=== PATIENT | female | born 1945 | race Caucasian/White ===

== ENCOUNTER 2022-03-05 06:33 | Inpatient (IN) ==
--- NOTE | 2022-02-15 11:15 | PAT Medication Instructions ---
Medication Instructions Date of Service February 15, 2022 Home Medications Medication Instructions Recorded amlodipine 2.5 mg tablet (Norvasc) 2.5 mg PO DAILY #90 tabs 12/12/20 multivitamin 1 cap PO QAM oxycodone-acetaminophen 10 mg-325 mg tablet 1 tab PO Q8H PRN Pain aspirin 81 mg tablet,delayed release 81 mg PO QPM diphenhydramine HCl 25 mg capsule (Benadryl) 25 mg PO TID PRN Allergy Symptoms folic acid 1 mg tablet 1 mg PO QAM methotrexate 2.5 mg PO WEEKLY pantoprazole 40 mg tablet,delayed release 40 mg PO QAM furosemide 20 mg tablet 40 mg PO QAM amlodipine 2.5 mg tablet (Norvasc) 2.5 mg PO DAILY duloxetine 30 mg capsule,delayed release 30 mg PO QAM metoprolol tartrate 50 mg tablet 50 mg PO BID empagliflozin 10 mg tablet (Jardiance) 10 mg PO QAM gabapentin 100 mg capsule 300 mg PO BID metformin 500 mg tablet 850 mg PO BID rosuvastatin 20 mg tablet 20 mg PO QAM calcium 600 mg-D3 800 unit-mag11 50 gp-qzup-smtppv-sharita-s.borat tablet (Caltrate 600-D Plus Minerals) 1 tab PO QAM losartan 50 mg tablet 50 mg PO QAM icosapent ethyl 1 gram capsule (Vascepa) 0.5 g PO BID spironolactone 25 mg tablet 25 mg PO QAM trazodone 50 mg tablet 50 mg PO HS ASK your prescriber and surgeon icosapent ethyl 1 gram capsule (Vascepa) 0.5 g PO BID aspirin 81 mg tablet,delayed release 81 mg PO QPM methotrexate 2.5 mg PO WEEKLY (Stop 7 days before surgery if okay with prescrib ing provider) DO NOT take the morning of surgery multivitamin 1 cap PO QAM diphenhydramine HCl 25 mg capsule (Benadryl) 25 mg PO TID PRN Allergy Symptoms folic acid 1 mg tablet 1 mg PO QAM furosemide 20 mg tablet 40 mg PO QAM metformin 500 mg tablet 850 mg PO BID calcium 600 mg-D3 800 unit-mag11 50 vf-ukzy-kkfqgk-sharita-s.borat tablet (Caltrate 600-D Plus Minerals) 1 tab PO QAM losartan 50 mg tablet 50 mg PO QAM spironolactone 25 mg tablet 25 mg PO QAM Take morning of surgery With a small sip of water, OTHERWISE NOTHING TO EAT OR DRINK AFTER MIDNIGHT: oxycodone-acetaminophen 10 mg-325 mg tablet 1 tab PO Q8H PRN Pain (if needed) pantoprazole 40 mg tablet,delayed release 40 mg PO QAM amlodipine 2.5 mg tablet (Norvasc) 2.5 mg PO DAILY duloxetine 30 mg capsule,delayed release 30 mg PO QAM metoprolol tartrate 50 mg tablet 50 mg PO BID gabapentin 100 mg capsule 300 mg PO BID rosuvastatin 20 mg tablet 20 mg PO QAM Take evening before surgery oxycodone-acetaminophen 10 mg-325 mg tablet 1 tab PO Q8H PRN Pain (if needed) diphenhydramine HCl 25 mg capsule (Benadryl) 25 mg PO TID PRN Allergy Symptoms (if needed) metoprolol tartrate 50 mg tablet 50 mg PO BID gabapentin 100 mg capsule 300 mg PO BID metformin 500 mg tablet 850 mg PO BID trazodone 50 mg tablet 50 mg PO HS Other Notes STOP 3 DAYS BEFORE SURGERY empagliflozin 10 mg tablet (Jardiance) 10 mg PO QAM If you have any questions please call us at [phone] or [phone] or [phone] or [phone]
--- NOTE | 2022-02-19 15:38 | Anesthesiology Consultation ---
Date of Service February 19, 2022 Assessment & Plan (1) Encounter for pre-operative examination: - COVID screening: Per assessment on 02/19: No known COVID-19 positive contacts or current COVID-19 related symptoms. Travel screen negative. Patient vaccinated. At surgeon discretion if preop Covid testing being done. - Cardiology office visit (01/18/22): "no new cardiac symptoms at this time.. She has an implantable loop recorder and once again this is not revealed atrial tachycardia.. flutter or fibrillation.. Start Vascepa for optimal lipid control given her history of stroke. Her metoprolol has been cut back to 50 mg twice a day due to her relative low blood pressure. I would note that she has a history of hypertension in the past and this low blood pressure is a new finding for her." - Cardiology note (02/08/22): "Low to moderate risk.. hx CVA on ASA.. has loop recorder > no Afib.. Can this be done with ASA on board?" > Per Sarah at surgeon's office, patient was instructed to continue ASA perioperatively. - Abnormal preop CXR: Preop CXR done 02/19/22 shows a 2.3 cm nodular density projects of the left upper lobe (per report, this is indeterminant and a chest CT is recommended to exclude underlying pulmonary lesion). Note written to PCP to see if further chest imaging being done prior to surgery from their perspective. Awaiting response. Chart Review Chart Review: Patient seen in Pre Admission Testing Teaching & Discussion Pre-Anesthesia Teaching/Discussion Notes: Instructed NPO after midnight before surgery,except medications with 15 cc of water. Medication instructions p rovided according to the PAT guidelines. History Surgery Operation Date: 03/05/22 10:45 Proposed Procedures p L3-L5 Decompression and Fusion Spinal Cord Monitoring - Donte Escamilla DO Height/Weight Height: 4 ft 11 in Weight: 58.7 kg Allergies Allergy/AdvReac Type Severity Reaction Status Date / Time No Known Allergies Allergy Verified 02/14/22 12:50 Medications Home Medications Medication Instructions Recorded Confirmed Last Taken multivitamin 1 cap PO QAM 07/05/19 02/14/22 Unknown oxycodone-acetaminophen 10 mg-325 1 tab PO Q8H PRN Pain 07/05/19 02/14/22 Unknown mg tablet aspirin 81 mg tablet,delayed 81 mg PO QPM 06/27/20 02/14/22 Unknown release diphenhydramine HCl 25 mg capsule 25 mg PO TID PRN Allergy Symptoms 06/27/20 02/14/22 Unknown (Benadryl) folic acid 1 mg tablet 1 mg PO QAM 06/27/20 02/14/22 Unknown methotrexate 2.5 mg PO WEEKLY 06/27/20 02/14/22 Unknown pantoprazole 40 mg tablet,delayed 40 mg PO QAM 06/27/20 02/14/22 Unknown release furosemide 20 mg tablet 40 mg PO QAM 06/29/20 02/14/22 Unknown amlodipine 2.5 mg tablet (Norvasc) 2.5 mg PO DAILY #90 tabs 12/12/20 02/14/22 Unknown duloxetine 30 mg capsule,delayed 30 mg PO QAM 12/12/20 02/14/22 Unknown release metoprolol tartrate 50 mg tablet 50 mg PO BID 12/12/20 02/14/22 Unknown empagliflozin 10 mg tablet 10 mg PO QAM 07/31/21 02/14/22 Unknown (Jardiance) gabapentin 100 mg capsule 300 mg PO BID 07/31/21 02/14/22 Unknown metformin 500 mg tablet 850 mg PO BID 07/31/21 02/14/22 Unknown rosuvastatin 20 mg tablet 20 mg PO QAM 07/31/21 02/14/22 Unknown calcium 600 mg-D3 800 unit-mag11 1 tab PO QAM 10/30/21 02/14/22 Unknown 50 ar-qjsr-vvapcp-sharita-s.borat tablet (Caltrate 600-D Plus Minerals) losartan 50 mg tablet 50 mg PO QAM 10/30/21 02/14/22 Unknown icosapent ethyl 1 gram capsule 0.5 g PO BID 02/14/22 02/14/22 Unknown (Vascepa) spironolactone 25 mg tablet 25 mg PO QAM 02/14/22 02/14/22 Unknown trazodone 50 mg tablet 50 mg PO HS 02/14/22 02/14/22 Unknown Eye Drop Tears BID 02/19/22 Unknown Nasal [place] (sodium chloride) HS PRN Allergy Symptoms 02/19/22 Unknown Past Medical History Medical History Anxiety and depression Breast cancer Dx 15 yrs ago, s/p left mastectomy (no chemo/XRT) Diabetes mellitus, type II GERD (gastroesophageal reflux disease) History of CVA (cerebrovascular accident) 2020 felt r/t hypertensive episode (Focal acute lacunar infarct in right posterior corpus collosum) > residual memory issues and mild aphasia. Follows / [facility] neuro [facility]. History of glomerulonephritis Hx of congestive heart failure Hx of myocardial infarction [address] Encinas/[facility] cardio [facility] last visit- 01/2022 Hyperlipidemia Hypertension Osteoarthritis Renal function impairment Follows with Dr. Diaz Baseline creatinine 1.4 per chart review Rheumatoid arthritis Follow with Dr Keith/[facility] Sleep apnea Not currently using device Spinal stenosis Stress incontinence Exercise / Class Metabolic Activity III < 4 Walking/Shop/Light housework (one FS (no CP, + SOB)) Past Family History Family History Other Coronary heart disease Denies family history of Kidney disease Past Surgical History Surgical History H/O carpal tunnel repair H/O mastectomy left History of esophagogastroduodenoscopy (EGD) Hx of cardiac catheterization 25 yrs ago > no stents Hx of cholecystectomy Hx of colonoscopy S/P rotator cuff repair S/P RENUKA-BSO Status post biopsy of kidney Past Anesthesia History No Hx of Anesthesia Complications and No Family Hx of Anesthesia Complications History of PONV No Hx of PONV and No Hx of Motion Sickness Social History Smoking Status: Never smoker Do You Dip or Chew Tobacco: No Hx Alcohol Use: Yes Alcohol type: wine alcohol intake frequency: holidays/special occasions only Hx Substance Use: No substance use type: does not use Review of Systems Patient denies chest pain, shortness of breath, dyspnea on exertion, fever, chills, cough, wheezing, palpitations. Physical Exam Vital Signs VITALS BP 138/63 P 66 TEMP 99.0 SP02 95%RA RESP 16 PHYSICAL Full cervical extension range of motion. Full TMJ range of motion. TMD 4 finger breaths Mallampati Score 1 Dentition: intact, + crowns Lungs: clear throughout to auscultation Cardiac: regular rate and rhythm, no murmurs noted Spine: normal Carotid arteries: negative bruit Extremities: no edema Lab Results Anesthesia Preop Results Results Anesthesia Widget: WBC 5.01 K/ul (4.8-10.8) 02/19/22 Hgb 12.8 g/dl (12.0-16.0) 02/19/22 Hct 37.7 % (34.1-44.9) 02/19/22 Plt 203 K/uL (130-400) 02/19/22 Na 137 mmol/L (136-145) 02/19/22 K 4.7 mmol/L (3.5-5.1) 02/19/22 Cl 99 mmol/L (98-107) 02/19/22 CO2 32 mmol/L (21-32) 02/19/22 BUN 43 mg/dl (6-23) H 02/19/22 Creat 1.20 mg/dl (0.6-1.2) 02/19/22 Glucose Level 133 mg/dl (70-99(Fasting)) H 02/19/22 PT 10.6 Seconds (9.0-12.0) 02/19/22 PTT 24.7 Seconds (21.0-31.0) 02/19/22 INR 1.0 (0.9-1.1) 02/19/22 HA1c 7.5 % (4.5-5.6) H 02/19/22 Urine Color Yellow 02/19/22 Urine Appearance Clear (Clear) 02/19/22 Urine pH 5.5 (4.5-7.5) 02/19/22 Urine Specific [place] 1.013 (1.000-1.030) 02/19/22 Urine Protein Negative (Negative) 02/19/22 Urine Glucose (UA) 3+ (Negative) H 02/19/22 Urine Ketones Negative (Negative) 02/19/22 Urine Blood Trace (Negative) H 02/19/22 Urine Nitrite Negative (Negative) 02/19/22 Urine Bilirubin Negative (Negative) 02/19/22 Urine Urobilinogen Negative (Negative) 02/19/22 Urine Leukocyte Esterase Negative (Negative) 02/19/22 Urine WBC (Auto) 1-5 /hpf (0-5) 02/19/22 Urine RBC (Auto) 0-4 /hpf (0-4) 02/19/22 Urine Hyaline Casts (Auto) 0 /lpf (0-5) 02/19/22 Urine Epithelial Cells (Auto) 0-5 /lpf (0-5) 02/19/22 Urine Bacteria (Auto) Negative (Negative) 02/19/22 Blood Type A Positive 02/19/22 Antibody Screen NEGATIVE 02/19/22 Testing Electrocardiogram Date: 01/20/22 Sinus rhythm at 65 bpm. ECG without significant abnormalities. Similar to 2020 per confirming provider. Chest X-Ray Date: 02/19/22 FINDINGS: PA and lateral chest radiographs are obtained. No prior studies are available for comparison at the time of dictation. An electronic device is located in the chest wall. The heart is mildly enlarged noting atherosclerotic calcification of the thoracic aorta. The pulmonary vasculature is noncongested. There is mild bibasilar scarring/atelectasis. No airspace consolidation or pleural effusion is identified. A 2.3 cm nodular density projects over the left upper lobe. There is no pneumothorax. The skeletal structures are osteopenic. The bony thorax appears intact. Surgical clips are noted in the left chest wall. Cholecystectomy clips are seen in the right upper quadrant. IMPRESSION: Cardiomegaly with no acute cardiopulmonary abnormality. A 2.3 cm nodular density projects of the left upper lobe. This is indeterminant and a chest CT is recommended to exclude underlying pulmonary lesion. Echocardiogram Date: 12/31/21 EF 65%. Grade 1 diastolic dysfunction. Mild aortic sclerosis. Mild MR. Mild mitral stenosis. Moderate mitral annular calcification. Mild CT. Stress Test Date: 02/21/21 Type: nuclear Normal nuclear stress test. No evidence of ischemia or infarction. Normal LVEF and wall motion. COVID-19 Risk Screen Screening Information COVID-19 Screen Date: 02/19/22 Exposure 21 Days Family/Household +COVID Last 21 Days: No Exposure 10 Days Any COVID Exposure Last 10 Days: No Symptoms Last 10 Days Experienced COVID Sx Last 10 Days: No + COVID 0-90 Days COVID + in Last 0-90 Days: No
[~2022-03-05 06:33] MED LIST: ACETAMINOPHEN 500 MG TAB PO SCH; CeleBREX 200 MG CAP PO SCH; GABAPENTIN 300 MG CAP PO SCH; LR 15ML/HR IV SCH; ceFAZolin 1000MG 1,000 MG/7.5 ML SYR IV SCH
[2022-03-05] MEDS ORDERED: ONDANSETRON INJ 2 MG/ML 2 ML VIAL ONE (06:50)
[2022-03-05] MEDS ORDERED: GLYCOPYRROLATE 0.2 MG/ML VIAL ONE (06:50)
[2022-03-05] MEDS ORDERED: NEOSTIGMINE METHYLSULFATE 1 MG/ML 10ML VIAL ONE (06:50)
[2022-03-05] MEDS ORDERED: DEXAMETHASONE SOD INJ 4 MG/ML VIAL ONE (06:50)
[2022-03-05] MEDS ORDERED: fentaNYL citrate 100 MCG/2 ML VIAL ONE (06:50)
[2022-03-05] MEDS ORDERED: PROPOFOL IV EMULSION 10 MG/ML 20 ML VIAL IV ONE (06:50)
[2022-03-05] MEDS ORDERED: ROCURONIUM BROMIDE 10 MG/ML 5 ML VIAL IV ONE (06:51)
[2022-03-05] MEDS ORDERED: LIDOCAINE 2% MPF LOCAL 5 ML VIAL INFIL ONE (06:51)
[2022-03-05] MEDS ORDERED: BUPIVACAINE/EPINEPHRINE 0.25% 1:200,000 30 ML VIAL ONE (07:08)
[2022-03-05] MEDS ORDERED: ceFAZolin 330 MG/ML 1 GM VIAL ONE (07:08)
--- NOTE | 2022-03-05 07:32 | History & Physical Bridge Note ---
Date of Service March 05, 2022 History & Physical Bridge Note I have examined the patient, reviewed the History & Physical and in the interval since the performance of the History & Physical I have noted the following changes of clinical significance: no changes noted
--- NOTE | 2022-03-05 07:33 | History & Physical Report ---
Date of Service March 05, 2022 Assessment & Plan (1) Neurogenic claudication due to lumbar spinal stenosis: Plan: L3-L5 decompression and fusion History of Present Illness Chief Complaint: Back and bilateral leg pain Primary Care Provider: Martha Duarte DO This is a 68-year-old female who presents with chronic persistent back and bilateral leg pain. After failing extensive course of nonoperative care is here for surgical intervention. Allergies Allergy/AdvReac Type Severity Reaction Status Date / Time No Known Allergies Allergy Verified 03/05/22 06:51 Home Medications Medication Instructions Recorded Confirmed Type multivitamin 1 cap PO QAM 07/05/19 03/05/22 History oxycodone-acetaminophen 10 mg-325 1 tab PO Q8H PRN Pain 07/05/19 03/05/22 History mg tablet aspirin 81 mg tablet,delayed 81 mg PO QPM 06/27/20 03/05/22 History release diphenhydramine HCl 25 mg capsule 25 mg PO TID PRN Allergy Symptoms 06/27/20 03/05/22 History (Benadryl) folic acid 1 mg tablet 1 mg PO QAM 06/27/20 03/05/22 History methotrexate 2.5 mg PO WEEKLY 06/27/20 03/05/22 History pantoprazole 40 mg tablet,delayed 40 mg PO QAM 06/27/20 03/05/22 History release furosemide 20 mg tablet 40 mg PO QAM 06/29/20 03/05/22 History amlodipine 2.5 mg tablet (Norvasc) 2.5 mg PO DAILY #90 tabs 12/12/20 03/05/22 Rx duloxetine 30 mg capsule,delayed 30 mg PO QAM 12/12/20 03/05/22 History release metoprolol tartrate 50 mg tablet 50 mg PO BID 12/12/20 03/05/22 History empagliflozin 10 mg tablet 10 mg PO QAM 07/31/21 03/05/22 History (Jardiance) gabapentin 100 mg capsule 300 mg PO BID 07/31/21 03/05/22 History metformin 500 mg tablet 850 mg PO BID 07/31/21 03/05/22 History rosuvastatin 20 mg tablet 20 mg PO QAM 07/31/21 03/05/22 History calcium 600 mg-D3 800 unit-mag11 1 tab PO QAM 10/30/21 03/05/22 History 50 rv-ojwn-xgztsy-sharita-s.borat tablet (Caltrate 600-D Plus Minerals) losartan 50 mg tablet 50 mg PO QAM 10/30/21 03/05/22 History icosapent ethyl 1 gram capsule 0.5 g PO BID 02/14/22 03/05/22 History (Vascepa) spironolactone 25 mg tablet 25 mg PO QAM 02/14/22 03/05/22 History trazodone 50 mg tablet 50 mg PO HS 02/14/22 03/05/22 History Eye Drop Tears BID 02/19/22 History Nasal [place] (sodium chloride) HS PRN Allergy Symptoms 02/19/22 History Past Med/Surg History Medical History Anxiety and depression Breast cancer Dx 15 yrs ago, s/p left mastectomy (no chemo/XRT) Diabetes mellitus, type II GERD (gastroesophageal reflux disease) History of CVA (cerebrovascular accident) 2020 felt r/t hypertensive episode (Focal acute lacunar infarct in right posterior corpus collosum) > residual memory issues and mild aphasia. Follows w/ [facility] neuro [facility]. History of glomerulonephritis Hx of congestive heart failure Hx of myocardial infarction [address] Encinas/[facility] cardio [facility] last visit- 01/2022 Hyperlipidemia Hypertension Osteoarthritis Renal function impairment Follows with Dr. Diaz Baseline creatinine 1.4 per chart review Rheumatoid arthritis Follow with Dr Keith/[facility] Sleep apnea Not currently using device Spinal stenosis Stress incontinence Surgical History H/O carpal tunnel repair H/O mastectomy left History of esophagogastroduodenoscopy (EGD) Hx of cardiac catheterization 25 yrs ago > no stents Hx of cholecystectomy Hx of colonoscopy S/P rotator cuff repair S/P RENUKA-BSO Status post biopsy of kidney Family History Other Coronary heart disease Denies family history of Kidney disease Social History Smoking Status: Never smoker Second Hand Exposure: No; Do You Dip or Chew Tobacco: No; Tobacco Cessation Education Requested by Patient: No Hx Alcohol Use: Yes Alcohol type: wine Hx Substance Use: No Preferred Language: [place] Communication Ability: Effective [place] Required: No Beliefs That Will Affect Care: None marital status: Current Living Situation: Spouse Other Information That Helps Us Care for You: No Feels Safe at Home: Yes Safety Concerns: Feels Safe At This Time Assistive Devices: Cane and Glasses Physical Exam Physical Exam: Patient is alert and oriented Heart regular rhythm Lungs clear Results & Data Results & Data ([facility]) Vital Signs (Past 12 Hours) Vital Signs Temp Pulse Resp BP Pulse Ox O2 Del Method 03/05/22 07:01 Room Air 03/05/22 07:01 37.3 C 66 20 151/70 H 98 Room Air
[2022-03-05] MEDS ORDERED: HYDROmorphone INJ 2 MG/ML SYR/VIAL IV PRN (08:16)
[2022-03-05] MEDS ORDERED: ONDANSETRON INJ 2 MG/ML 2 ML VIAL IV PRN ×2 (08:16→12:08)
[2022-03-05] MEDS ORDERED: ePHEDrine sulfate 50 MG/ML AMP IV PRN (08:16)
[2022-03-05] MEDS ORDERED: ATROPINE SULFATE 0.1 MG/ML 10ML SYR IV PRN (08:16)
[2022-03-05] MEDS ORDERED: PROMETHAZINE HCL 12.5 MG in SODIUM CHLORIDE 0.9% 50 ML IV PRN ×2 (08:16→12:08)
[2022-03-05] MEDS ORDERED: HYDROmorphone INJ 2 MG/ML SYR/VIAL ONE (08:22)
[2022-03-05] MEDS ORDERED: FLOSEAL HEMOSTATIC MATRIX 10ML TOP ONE (08:27)
[2022-03-05] MEDS ORDERED: ePHEDrine sulfate 50 MG/ML SYR ONE (08:42)
[2022-03-05] MEDS ORDERED: PHENYLEPHRINE 100MCG/ML 5ML SYR ONE (08:42)
[2022-03-05] MEDS ORDERED: ALBUMIN HUMAN 5% 12.5 GM/250 ML VIAL IV ONE (09:28)
[2022-03-05] MEDS ORDERED: PHENYLEPHRINE HCL 10 MG/ML VIAL ONE (10:26)
--- NOTE | 2022-03-05 10:26 | Operative Report ---
Post Operative Report Pre & Post Diagnosis Operation Date: 03/05/22 07:45 Pre-Op Diagnosis: Neurogenic Claudication due to Lumbar Spinal Stenosis Post-Op Diagnosis: Neurogenic Claudication due to Lumbar Spinal Stenosis I identified the patient and participated in the time-out.: Yes Procedure Operation Date: 03/05/22 07:45 Actual Procedures #1 lumbar decompression bilateral medial facetectomies and foraminotomies L2-L3 L3-L4 L4-5. 2 posterior spinal fusion L2-L3 L3-L4 L4-5. #3 placement of posterior segmental instrumentation L2-L5. #4 placement locally harvested morselized autograft in the posterior gutters. #5 placement of I factor model V toss in the posterior gutters L2-L5. Surgeon Donte Escamilla, Pediatric Registered Nurse Angela Zhao Estimated Blood Loss 650 Findings See Below Specimens None Indications This is a 68-year-old female who presents above-mentioned diagnosis after failing course of nonoperative care is here for surgical invention. Description of Procedure Patient was met with identified informed consent obtained. Patient was then taken to the operative suite underwent an patient placed in a prone position the [place] table top Alan frame. All bony prominences well-padded eyes inspected to ensure no external pressure placed upon the. This point the lumbar spine was prepped and draped in a sterile fashion. Sharp dissection with the assistance of Bovie cautery performed down to and exposing the lamina and transverse processes of L3 L4-5 bilaterally. From caudal to cephalad fashion complete laminectomy of L4 L3 and extended the decompression L2 including medial facetectomies and foraminotomies addressing severe spinal stenosis. Due to her bony architecture was unable to successfully perform an interbody at L3-L4 and she had severe stenosis at L2-L3 upon exploration subsequently extended the fusion to L2 for additional stability. Pedicle screws were placed in L2-L3-L4 L5 bilaterally with assistance of fluoroscopy and proper sized matt placed. Transverse processes of L2-L3-L4 L5 were then burred to subcortically bone. I factor model V toss and locally harvested morselized autograft was placed in the posterior gutters. 15 round DELPHINE inserted. The incision was then closed with 1 Vicryl the fascia 2-0 Vicryl subcutaneously and 4 Monocryl for final skin closure. Steri-Strip sterile dressings placed. Patient waken taken to PACU in stable condition. I did place a small amount of DuraGen over the L4 region as the dura was quite thin from marked bony overgrowth. This was prophylactic. Please note Angela Zhao was present at the entire procedure involved the patient positioning complex portion of the surgery and fascial closure. Lastly spinal cord monitoring was utilized at the procedure no changes noted. I attest to the content of the Intraoperative Record and any orders documented therein. Any exceptions are noted below.
--- NOTE | 2022-03-05 10:46 | Fluoroscopy Report ---
FL lumbar spine 2-3V HISTORY: 76 years-old Female L3-L5 DECOMPRESSION AND FUSION COMPARISON: None TECHNIQUE: 3 spot fluoroscopic images of the lumbar spine were obtained utilizing 48.5 seconds fluoro scopy time FINDINGS: Posterior interbody matt and screw fusion hardware is noted at what is labeled the L2-L5 levels. The h ardware appears intact. Severe multilevel vertebral disc space narrowing and spondylitic spurring. No unexpected opaque foreign bodies identified. The images were submitted following completion of the s urgery. IMPRESSION: Fluoroscopic assistance as above. ACT 112: Negative or not required by law. The above report was generated using voice recognition software. It may contain grammatical, syntax o r spelling errors. Electronically signed by: Alex Mohamud M.D. 03/05/2022 10:44 AM
[2022-03-05] MEDS: fentaNYL citrate 100 MCG/2 ML VIAL IV PRN ×2 (10:57→11:02)
--- NOTE | 2022-03-05 11:42 | Anesthesiology Progress Note ---
Date of Service March 05, 2022 Anesthesia Post Procedure Vital Signs Vital Signs: Temp Pulse Pulse Resp BP BP Pulse Ox 03/05/22 11:35 36.8 C 70 13 95/57 L 98 03/05/22 11:25 72 12 92/57 L 97 03/05/22 11:15 60 15 96/49 L 95 03/05/22 11:05 63 18 92/42 L 95 03/05/22 10:55 60 11 L 113/46 L 96 03/05/22 10:46 36.1 C L 72 14 126/62 98 03/05/22 07:01 03/05/22 07:01 37.3 C 66 20 151/70 H 98 O2 Del Method O2 Flow Rate 03/05/22 11:35 Nasal Cannula 2 03/05/22 11:25 Nasal Cannula 2 03/05/22 11:15 Nasal Cannula 2 03/05/22 11:05 Oxymask 2 03/05/22 10:55 Oxymask 4 03/05/22 10:46 Oxymask 4 03/05/22 07:01 Room Air 03/05/22 07:01 Room Air Pain Intensity Bilateral Back: Pain Intensity: 2 Back: Pain Intensity: 4 Transfer of Care Handoff Completed per policy Notes Mental Status: alert / awake / arousable and participated in evaluation Patient Amnestic to Procedure: Yes Nausea / Vomiting: adequately controlled Pain: adequately controlled Airway Patency, RR, SpO2: stable & adequate BP & HR: stable & adequate Hydration State: stable & adequate Anesthetic Complications: no major complications apparent
[2022-03-05] MEDS ORDERED: bisacodyL 10 MG SUPP PR PRN (12:08)
[2022-03-05] MEDS ORDERED: SOD PHOSPHATE/SOD BIPHOSPHATE ENEMA 132 ML BTL PR PRN (12:08)
[2022-03-05] MEDS ORDERED: PHARMACY GLYCEMIC MGMT CONSULT PRN (12:08)
[2022-03-05] MEDS ORDERED: NALOXONE HCL 0.4 MG/1 ML VIAL/CARP IV PRN (12:08)
[2022-03-05] MEDS ORDERED: ONDANSETRON 4 MG OD TAB PO PRN (12:08)
[2022-03-05] MEDS ORDERED: LORazepam 0.5 MG TAB PO PRN (12:08)
[2022-03-05] MEDS ORDERED: HYDROmorphone INJ 0.5 MG/0.5 ML SYR IV PRN (12:08)
[2022-03-05] MEDS ORDERED: diphenhydrAMINE Capsule 25 MG CAP PO PRN ×2 (12:08)
[2022-03-05] MEDS ORDERED: LORazepam 0.5 MG in SYRINGE 0 ML IV PRN (12:08)
[2022-03-05] MEDS ORDERED: ACETAMINOPHEN 1,000 MG/100 ML VIAL IV PRN (12:08)
[2022-03-05] MEDS ORDERED: METOCLOPRAMIDE HCL INJ 5 MG/ML 2 ML VIAL IV PRN (12:08)
[2022-03-05] MEDS ORDERED: MAGNESIUM HYDROXIDE SUSP 30 ML UDC PO PRN (12:08)
[2022-03-05] MEDS ORDERED: HYDROmorphone INJ 1 MG/ML SYRINGE IV PRN (12:08)
[2022-03-05] MEDS ORDERED: hydrOXYzine HCl 25 MG TAB PO PRN (12:08)
[2022-03-05] MEDS ORDERED: ALUMINUM/MAGNESIUM SUSP 30 ML UDC PO PRN (12:08)
[2022-03-05] MEDS ORDERED: FAMOTIDINE 20 MG TAB PO PRN (12:08)
[2022-03-05] MEDS ORDERED: CARBOHYDRATES FOR HYPOGLYCEMIA PO PRN (12:45)
[2022-03-05] MEDS ORDERED: GLUCOSE 40% GEL 15 GM TUBE PO PRN (12:45)
[2022-03-05] MEDS ORDERED: GLUCOSE 10 TAB/TUBE PO PRN (12:45)
[2022-03-05] MEDS ORDERED: GLUCAGON FOR INJ 1 MG VIAL IM PRN (12:45)
[2022-03-05] MEDS ORDERED: LANTUS PER UNIT CHARGE SQ ONE (12:45)
[2022-03-05] MEDS ORDERED: DEXTROSE 50% 50 ML SYRINGE IV PRN (12:45)
[2022-03-05] MEDS: traMADol HCL 50 MG TABLET PO PRN ×3 (12:50→23:42)
[2022-03-05] MEDS: INSULIN ASPART PER UNIT SC SCH ×3 (13:30→21:15)
[2022-03-05] MEDS: SODIUM CHLORIDE 0.9% 1000ML 1,000 ML IV SCH ×2 (13:30→23:42)
--- NOTE | 2022-03-05 14:22 | Pharmacy Report ---
Pharmacy Glycemic Short Note 2 - Date of Service March 05, 2022 - Glycemic Short BSG Results (Last 24 hours): 03/05/22 03/05/22 03/05/22 07:02 10:52 12:20 POC Glucose 149 H 217 H 214 H OUTPATIENT ANTIDIABETIC REGIMEN: * Jardiance 10 mg PO daily * Metformin 850 mg PO BIDM HbA1c: 7.5% (02/19/22) ASSESSMENT: * is a 76 year old female POD #0 s/p lumbar decompression fusion * Received 4 mg IV dexamethasone in OR and ordered 6 mg IV daily ongoing * Reasonable HbA1c based on age with oral agents only * BSGs elevated so far today, preop BSG of 149 mg/dL, postop BSG of 214 mg/dL * Will give ~0.3 unit/kg basal to cover steroids and weight-based stress of 3 Novolog parameters with 0000 check PLAN FOR INPATIENT GLYCEMIC CONTROL: * Hold outpatient oral diabetes medications * Basal insulin * Lantus 18 units SC x 1 (~0.3 unit/kg) * Reassess in AM with IV dexamethasone * Bolus insulin * NovoLog per scale ACHS or Q6hrs while NPO * Goal Range: Low 110 mg/dL - High 140 mg/dL * Correction Factor: 30 mg/dL/unit * Nutritional / Prandial insulin per carb ratio of 1 unit per 8 grams CHO consumed
--- NOTE | 2022-03-05 15:00 | Hospitalist Consultation ---
Date of Consultation March 05, 2022 Assessment & Plan (1) Neurogenic claudication due to lumbar spinal stenosis: - POD #0, EBL 650 cc, without complications. - Pain/ABX/IVF/diet/drain management/transfusion needs/activity per primary team - Rescue Narcan ordered for over sedation PRN - VTE prophylaxis per primary service- SCDs in place - CBC and BMP in AM. - Baseline renal function: 1.2 on 02/19, GFR 43. - Baseline Hgb: 12.8 on 02/19 (2) CAD (coronary artery disease): - Hold losartan untl POD# unless SBP > 150; Continue metoprolol, statin, Vascepa. - Hold Lasix, spironolactone until POD #2 unless fluids overload. (3) CKD (chronic kidney disease): - History of glomerulonephritis with IgA nephropathy, baseline creatinine 1.4. - Monitor on daily BMP. - Hold losartan, continue metoprolol for BP control. Holding SGLT2 during admission. (4) History of CVA (cerebrovascular accident): - History of several strokes, thought to be hypertension related, also may be due to A. fib, however patient not diagnosed with such. - Continue on aspirin daily as long as okay with primary team to resume. (5) Hx of congestive heart failure: - Echo 12/24: Normal left ventricular size EF 65% grade 1 diastolic dysfunction normal right ventricular size and function. Mild mitral regurg mild stenosis, trace tricuspid regurg. - Hold spironolactone 25 mg daily, Lasix 40 mg daily until POD #2 if BP low- normal. (6) GERD (gastroesophageal reflux disease): - Continue PPI. (7) Anxiety and depression: - Continue Cymbalta, gabapentin. - Trazodone at night for sleep. (8) Rheumatoid arthritis: - On methotrexate with folate supplementation. (9) Diabetes mellitus, type II: - On metformin and Jardiance at home, hold durin admission - Pharmacy consulted for glycemic control. Recommendations are for Lantus 18 units in the a.m., reassess daily given IV dexamethasone use. - SSI: CF 30, CR 8 Plan - CT follow up in 12 months for lung nodules. Supervising Physician Co-Signing Physician Notes Patient seen and examined, chart reviewed, case discussed with Joan Gonsalez PA-C and I agree with the assessment and plan as above except as otherwise noted Labs and images reviewed Lois is a 76-year-old female with past medical history of CVA, CHF with EF 65%, GERD, anxiety/depression, RA on methotrexate, DM2 not on insulin, CAD, neurogenic claudication who presented for scheduled lumbar decompression and fusion and who is s/p surgical intervention 03/05/2022 without surgical complications. Postop is doing well, no fever/chills/sweats/lightheadedness/dizziness. Some mid low back pain. Thinks she has some improved sensation in her R lateral thigh. Sensation intact in feet bilaterally. Some baseline neuropathy. CTAB, RRR. No longer on amlodipine, medications updated. Patient is with adequate MAP but relative hypotension postoperatively. Continue to hold spironolactone, losartan, Lasix, amlodipine until 03/06. Hold metoprolol for systolic less than 100 or heart rate less than 60. Resume aspirin tomorrow, DVT prophylaxis per primary team. If blood pressure normalizes and creatinine normal in the morning may resume home regimen. If creatinine elevated can continue to hold losartan/spironolactone and resume amlodipine first. Otherwise agree with management of chronic issues above. Lung Nodules: 3x <6mm. No need for followup with low risk, given hx of cancer and high concern for environmental exposure can repeat CT at 12 months. History of Present Illness Reason for Consultation: medical management Requesting Physician: Donte Escamilla DO Attending Physician: Donte Escamilla DO History of Present Illness Lois Mayo is a 76-year-old female with past medical history significant for hypertension, hyperlipidemia, CHF, CAD, CKD, prior CVA, DM2, urinary incontinence, anxiety, depression, rheumatoid arthritis, GERD, who was admitted today, 03/05 for L3-L5 decompression fusion surgery with Dr. Escamilla. He has had chronic, persistent back and leg pain extensive, conservative outpatient management. Hospitalist group was consulted for post-operative medication management. Today, she is POD#0 and feels well. Denies fever/chills, weakness, chest pain, palpitations, shortness of breath, cough, orthopnea, abdominal pain, nausea, vomiting. She has some bilateral numbness in her upper thighs which is unchanged prior to surgery. No weakness, tingling. Allergies Allergy/AdvReac Type Severity Reaction Status Date / Time No Known Allergies Allergy Verified 03/05/22 06:51 Home Medications Medication Instructions Recorded Confirmed Type multivitamin 1 cap PO QAM 07/05/19 03/05/22 History oxycodone-acetaminophen 10 mg-325 1 tab PO Q8H PRN Pain 07/05/19 03/05/22 History mg tablet aspirin 81 mg tablet,delayed 81 mg PO QPM 06/27/20 03/05/22 History release diphenhydramine HCl 25 mg capsule 25 mg PO TID PRN Allergy Symptoms 06/27/20 03/05/22 History (Benadryl) folic acid 1 mg tablet 1 mg PO QAM 06/27/20 03/05/22 History methotrexate 2.5 mg PO WEEKLY 06/27/20 03/05/22 History pantoprazole 40 mg tablet,delayed 40 mg PO QAM 06/27/20 03/05/22 History release furosemide 20 mg tablet 40 mg PO QAM 06/29/20 03/05/22 History duloxetine 30 mg capsule,delayed 30 mg PO QAM 12/12/20 03/05/22 History release metoprolol tartrate 50 mg tablet 50 mg PO BID 12/12/20 03/05/22 History empagliflozin 10 mg tablet 10 mg PO QAM 07/31/21 03/05/22 History (Jardiance) gabapentin 100 mg capsule 300 mg PO BID 07/31/21 03/05/22 History metformin 500 mg tablet 850 mg PO BID 07/31/21 03/05/22 History rosuvastatin 20 mg tablet 20 mg PO QAM 07/31/21 03/05/22 History calcium 600 mg-D3 800 unit-mag11 1 tab PO QAM 10/30/21 03/05/22 History 50 uu-uapx-zjuzyv-sharita-s.borat tablet (Caltrate 600-D Plus Minerals) losartan 50 mg tablet 50 mg PO QAM 10/30/21 03/05/22 History icosapent ethyl 1 gram capsule 0.5 g PO BID 02/14/22 03/05/22 History (Vascepa) spironolactone 25 mg tablet 25 mg PO QAM 02/14/22 03/05/22 History trazodone 50 mg tablet 50 mg PO HS 02/14/22 03/05/22 History Eye Drop Tears BID 02/19/22 History Nasal [place] (sodium chloride) HS PRN Allergy Symptoms 02/19/22 History Patient History Medical History (Updated 03/05/22 @ 15:21 by Joan Gonsalez PA-C) Anxiety and depression Breast cancer Dx 15 yrs ago, s/p left mastectomy (no chemo/XRT) Diabetes mellitus, type II GERD (gastroesophageal reflux disease) History of CVA (cerebrovascular accident) 2020 felt r/t hypertensive episode (Focal acute lacunar infarct in right posterior corpus collosum) > residual memory issues and mild aphasia. Follows w/ [facility] neuro [facility]. History of glomerulonephritis Hx of congestive heart failure Hx of myocardial infarction [address] Encinas/[facility] cardio [facility] last visit- 01/2022 Hyperlipidemia Hypertension Osteoarthritis Renal function impairment Follows with Dr. Diaz Baseline creatinine 1.4 per chart review Rheumatoid arthritis Follow with Dr Keith/[facility] Sleep apnea Not currently using device Spinal stenosis Stress incontinence Surgical History H/O carpal tunnel repair H/O mastectomy left History of esophagogastroduodenoscopy (EGD) Hx of cardiac catheterization 25 yrs ago > no stents Hx of cholecystectomy Hx of colonoscopy S/P rotator cuff repair S/P RENUKA-BSO Status post biopsy of kidney Family History Other Coronary heart disease Denies family history of Kidney disease Social History Smoking Status: Never smoker Second Hand Exposure: No; Do You Dip or Chew Tobacco: No; Tobacco Cessation Education Requested by Patient: No Hx Alcohol Use: Yes Alcohol type: wine Hx Substance Use: No Preferred Language: Bengali Communication Ability: Effective Envelope Folding Machine Adjuster Required: No Beliefs That Will Affect Care: None marital status: Current Living Situation: Spouse Other Information That Helps Us Care for You: No Feels Safe at Home: Yes Safety Concerns: Feels Safe At This Time Assistive Devices: Cane and Glasses Review of Systems Review of Systems: All systems reviewed & are unremarkable except as noted in HPI & below Physical Exam Physical Exam: General: awake, alert, no apparent distress Head: Normocephalic, atraumatic ENT: PERRL, EOMI, no pharyngeal exudate, mucous membranes moist Chest: Clear to auscultation, on room air, no adventitious breath sounds Cardiac: Regular rate and rhythm, no murmur, no JVD, normal peripheral pulses, good capillary refill Abdominal: NABS x 4 quadrants, soft, nontender to palpation, no rebound, guarding or tenderness Extremities: b/l paraesthesias in b/l upper legs, unchanged from prior to surgery; no new sensory or motor deficits; otherwise normal inspection, no peripheral edema or erythema, calfs nontender to palpation Psych: Normal mood and affect Neuro: AAO x 3, strength intact bilaterally and rated 5/5, no motor deficits, speech is clear, no peripheral sensory deficits Skin: no rash or erythema Results & Data Results & Data ([facility]) Vital Signs (Past 12 Hours) Vital Signs Temp Pulse Pulse Resp BP BP Pulse Ox 03/05/22 14:38 36.7 C 74 16 95/42 L 95 03/05/22 13:13 36.5 C 62 18 102/51 L 94 03/05/22 12:40 36.8 C 63 18 107/42 L 97 03/05/22 12:20 95/37 L 03/05/22 12:05 36.8 C 71 18 88/46 L 95 03/05/22 11:55 76 22 96/64 L 98 03/05/22 11:45 36.8 C 74 20 86/44 L 97 03/05/22 11:35 70 13 89/41 L 98 03/05/22 11:25 72 12 92/57 L 97 03/05/22 11:15 60 15 96/49 L 95 03/05/22 11:05 63 18 92/42 L 95 03/05/22 10:55 60 11 L 113/46 L 96 03/05/22 10:46 36.1 C L 72 14 126/62 98 03/05/22 07:01 03/05/22 07:01 37.3 C 66 20 151/70 H 98 O2 Del Method O2 Flow Rate 03/05/22 14:38 Room Air 03/05/22 13:13 Room Air 03/05/22 12:40 Nasal Cannula 2 03/05/22 12:20 03/05/22 12:05 Nasal Cannula 2 03/05/22 11:55 Nasal Cannula 2 03/05/22 11:45 Nasal Cannula 2 03/05/22 11:35 Nasal Cannula 2 03/05/22 11:25 Nasal Cannula 2 03/05/22 11:15 Nasal Cannula 2 03/05/22 11:05 Oxymask 2 03/05/22 10:55 Oxymask 4 03/05/22 10:46 Oxymask 4 03/05/22 07:01 Room Air 03/05/22 07:01 Room Air Laboratory Results Abnormal lab results 03/05/22 03/05/22 03/05/22 Range/Units 06:50 07:02 10:52 POC Glucose 149 H 217 H (70-99) mg/dl Crossmatch See Detail 03/05/22 Range/Units 12:20 POC Glucose 214 H (70-99) mg/dl Crossmatch Diagnostic Findings Lumbar Spine X-Ray 03/05/22 07:45 FL lumbar spine 2-3V HISTORY: 76 years-old Female L3-L5 DECOMPRESSION AND FUSION COMPARISON: None TECHNIQUE: 3 spot fluoroscopic images of the lumbar spine were obtained utilizing 48.5 seconds fluoroscopy time FINDINGS: Posterior interbody matt and screw fusion hardware is noted at what is labeled t he L2-L5 levels. The hardware appears intact. Severe multilevel vertebral disc space narrowing and spondylitic spurring. No unexpected opaque foreign bodies identified. The images were submitted following completion of the surgery. IMPRESSION: Fluoroscopic assistance as above. ACT 112: Negative or not required by law. The above report was generated using voice recognition software. It may contain grammatical, syntax or spelling errors. Electronically signed by: Alex Mohamud M.D. 03/05/2022 10:44 AM PG Care Time/CCT Total # of Minutes Spent Total Time Spent with Patient: Total time spent is greater than 50% in coordination of care (as documented) at patient's floor/unit and/or counseling patient: Coding Level of Care Code 39203 Inpt Consult Level 4 Diagnoses Neurogenic claudication due to lumbar spinal stenosis M48.062 CAD (coronary artery disease) I25.10 CKD (chronic kidney disease) N18.9 History of CVA (cerebrovascular accident) Z86.73 Hx of congestive heart failure Z86.79 GERD (gastroesophageal reflux disease) K21.9 Anxiety and depression F41.9; F32.A Rheumatoid arthritis M06.9 Diabetes mellitus, type II E11.9
[2022-03-05] MEDS: ACETAMINOPHEN 500 MG TAB PO PRN (16:32)
[2022-03-05] MEDS: ceFAZolin 1000MG 1,000 MG/7.5 ML SYR IV SCH ×2 (16:32→23:42)
[2022-03-05] MEDS: oxyCODONE HCL IR 5 MG TAB (IMMEDIATE RELEASE) PO PRN ×2 (17:23→21:55)
[2022-03-05] MEDS: METOPROLOL TARTRATE 50 MG TAB PO SCH (20:41)
[2022-03-05] MEDS: DOCUSATE SODIUM/SENNA 50/8.6MG TAB PO SCH (20:45)
[2022-03-05] MEDS: traZODone HCL 50 MG TAB PO SCH (20:45)
[2022-03-05] MEDS: GABAPENTIN 300 MG CAP PO SCH (20:45)
[2022-03-05] MEDS: ASPIRIN 81 MG ECTAB PO SCH (20:46)
[2022-03-06] MEDS ORDERED: INSULIN ASPART PER UNIT SC SCH
[2022-03-06] MEDS: oxyCODONE HCL IR 5 MG TAB (IMMEDIATE RELEASE) PO PRN ×4 (02:01→16:06)
[2022-03-06] MEDS: POLYETHYLENE (MIRALAX) 17 GM PACK PO SCH ×4 (06:04→23:48)
[2022-03-06 06:45] LABS: Basophils # (auto) 0.03 K/uL (0-0.2); Basophils % (auto) 0.4 %; Eosinophils # (auto) 0.11 K/uL (0-0.50); Eosinophils % (auto) 1.4 %; Hematocrit (blood only) 23.7 % (34.1-44.9); Hemoglobin 7.8 g/dl (12.0-16.0); Immature Granulocytes # (auto) 0.02 K/uL (0.00-0.02); Immature Granulocytes % (auto) 0.3 %; Lymphocytes # (auto) 1.15 K/uL (1.2-3.4); Lymphocytes % (auto) 15.1 %; Mean Corpuscular Hemoglobin 30.7 pg (25.0-34.0); Mean Corpuscular Hgb Conc 32.9 g/dL (32.0-36.0); Mean Corpuscular Volume 93.3 fL (80.0-100.0); Mean Platelet Volume 9.8 fL (9.4-12.3); Monocytes # (auto) 0.95 K/uL (0.24-0.82); Monocytes % (auto) 12.4 %; Neutrophils # (auto) 5.38 K/uL (1.4-6.5); Neutrophils % (auto) 70.4 %; Platelet Count 128 K/uL (130-400); RDW Coefficient of Variation 13.7 % (11.5-14.5); RDW Standard Deviation 45.9 fL (36.4-46.3); Red Blood Count 2.54 M/uL (3.93-5.22); White Blood Count 7.64 K/ul (4.8-10.8)
[2022-03-06 07:08] LABS: BUN Creatinine Ratio 21.5 (10-20); Creatinine Clr Calc Pharmacy 33.5 ml/min; Est GFR (African American) 57.6 ml/min; Est GFR (Non-African American) 49.7 ml/min; Polychromasia 1+; Potassium 4.3 mmol/L (3.5-5.1)
[2022-03-06] MEDS: GABAPENTIN 300 MG CAP PO SCH ×2 (08:57→20:26)
[2022-03-06] MEDS: PANTOprazole 40 MG TAB PO SCH (08:57)
[2022-03-06] MEDS: CALCIUM 600MG + VIT D 400 IU TAB PO SCH (08:59)
[2022-03-06] MEDS: DULoxetine HCL 30 MG CAP PO SCH (08:59)
[2022-03-06] MEDS: METOPROLOL TARTRATE 50 MG TAB PO SCH ×2 (08:59→20:26)
[2022-03-06] MEDS ORDERED: LOSARTAN POTASSIUM 50 MG TAB PO SCH (09:00)
[2022-03-06] MEDS ORDERED: amLODIPine BESYLATE 5 MG TAB PO SCH (09:00)
[2022-03-06] MEDS ORDERED: EMPAGLIFLOZIN 10 MG TAB PO SCH (09:00)
[2022-03-06] MEDS ORDERED: SPIRONOLACTONE 25 MG TAB PO SCH (09:00)
[2022-03-06] MEDS ORDERED: LANTUS PER UNIT CHARGE SQ SCH ×2 (09:00)
[2022-03-06] MEDS: FOLIC ACID 1 MG TAB PO SCH (09:00)
[2022-03-06] MEDS ORDERED: FUROSEMIDE 40 MG TAB PO SCH (09:00)
[2022-03-06] MEDS: ROSUVASTATIN CALCIUM 20 MG TAB PO SCH (09:00)
[2022-03-06] MEDS: dexAMETHasone 6 MG in SYRINGE 0 ML IV SCH (09:01)
[2022-03-06] MEDS: INSULIN ASPART PER UNIT SC SCH ×4 (09:06→23:47)
--- NOTE | 2022-03-06 09:35 | Pharmacy Report ---
Pharmacy Glycemic Short Note 2 - Date of Service March 06, 2022 - Glycemic Short BSG Results (Last 24 hours): 03/05/22 03/05/22 03/05/22 10:52 12:20 16:49 Glucose POC Glucose 217 H 214 H 199 H 03/05/22 03/05/22 03/06/22 20:54 23:56 06:23 Glucose 144 H POC Glucose 162 H 154 H 03/06/22 08:15 Glucose POC Glucose 163 H OUTPATIENT ANTIDIABETIC REGIMEN: * Jardiance 10 mg PO daily * Metformin 850 mg PO BIDM HbA1c: 7.5% (02/19/22) ASSESSMENT: 03/06/22 * BSGs mildly elevated yesterday postoperatively, ranging 154-199 mg/dL * Fasting BSG of 163 mg/dL this morning - will increase Lantus to ~0.4 unit/kg with dexamethasone today 03/05/22 * is a 76 year old female POD #0 s/p lumbar decompression fusion * Received 4 mg IV dexamethasone in OR and ordered 6 mg IV daily ongoing * Reasonable HbA1c based on age with oral agents only * BSGs elevated so far today, preop BSG of 149 mg/dL, postop BSG of 214 mg/dL * Will give ~0.3 unit/kg basal to cover steroids and weight-based stress of 3 Novolog parameters with 0000 check PLAN FOR INPATIENT GLYCEMIC CONTROL: * Hold outpatient oral diabetes medications * Basal insulin - increase * Lantus 22 units SC daily with IV dexamethasone (~0.4 unit/kg) * Bolus insulin - tighten * NovoLog per scale ACHS or Q6hrs while NPO * Goal Range: Low 110 mg/dL - High 140 mg/dL * Correction Factor: 25 mg/dL/unit * Nutritional / Prandial insulin per carb ratio of 1 unit per 7 grams CHO consumed
--- NOTE | 2022-03-06 10:04 | Orthopedic Progress Note ---
Date of Service March 06, 2022 Assessment & Plan (1) Acute blood loss as cause of postoperative anemia: Plan: This time we will initiate bed to chair. If she tolerates this today we will initiate formalized physical therapy occupational therapy tomorrow. Admission and Anticipated Discharge Date Admission Date: March 05, 2022 Subjective Back pain controlled leg symptoms improved Physical Exam Physical Exam: Patient is sitting up in bed. She is comfortable. Good strength testing. Results & Data ([facility]) Vital Signs (Past 12 Hours) Vital Signs Temp Pulse Resp BP BP Pulse Ox O2 Del Method 03/06/22 07:44 37.2 C 84 16 95/48 L 96 Room Air 03/06/22 03:00 36.5 C 64 16 106/54 L 93 Room Air 03/05/22 23:00 36.8 C 63 16 89/38 L 99/45 L 94 Room Air
[2022-03-06] MEDS: traMADol HCL 50 MG TABLET PO PRN (12:47)
[2022-03-06] MEDS: ASPIRIN 81 MG ECTAB PO SCH (20:26)
[2022-03-06] MEDS: DOCUSATE SODIUM/SENNA 50/8.6MG TAB PO SCH (20:27)
[2022-03-06] MEDS: ICOSAPENT ETHYL 0.5 GM PO SCH (20:27)
[2022-03-06] MEDS: traZODone HCL 50 MG TAB PO SCH (20:27)
[2022-03-07] MEDS: ACETAMINOPHEN 500 MG TAB PO PRN ×2 (00:20→20:21)
[2022-03-07] MEDS: traMADol HCL 50 MG TABLET PO PRN ×2 (00:20→20:20)
[2022-03-07] MEDS: POLYETHYLENE (MIRALAX) 17 GM PACK PO SCH ×3 (06:17→17:51)
--- NOTE | 2022-03-07 08:22 | Orthopedic Progress Note ---
Date of Service March 07, 2022 Assessment & Plan (1) Neurogenic claudication due to lumbar spinal stenosis: Plan: At this time initiate physical therapy occupational therapy today. Monitor DELPHINE operatively discharge home this weekend. Admission and Anticipated Discharge Date Admission Date: March 05, 2022 Subjective Patient's pain is controlled leg symptoms improved. She tolerated sitting in a chair yesterday without difficulty. Physical Exam Physical Exam: Patient is comfortable is constricted testing. Results & Data ([facility]) Vital Signs (Past 12 Hours) Vital Signs Temp Pulse Resp BP Pulse Ox O2 Del Method 03/07/22 07:26 36.9 C 70 18 116/61 95 Room Air 03/07/22 07:22 36.8 C 67 16 109/63 98 Room Air 03/06/22 20:29 36.8 C 88 18 123/52 L 92 Room Air
[2022-03-07] MEDS: INSULIN ASPART PER UNIT SC SCH ×4 (08:47→21:37)
[2022-03-07] MEDS: DULoxetine HCL 30 MG CAP PO SCH (08:48)
[2022-03-07] MEDS: LANTUS PER UNIT CHARGE SQ SCH (08:48)
[2022-03-07] MEDS: FOLIC ACID 1 MG TAB PO SCH (08:48)
[2022-03-07] MEDS: METOPROLOL TARTRATE 50 MG TAB PO SCH ×2 (08:49→21:43)
[2022-03-07] MEDS: PANTOprazole 40 MG TAB PO SCH (08:49)
[2022-03-07] MEDS: GABAPENTIN 300 MG CAP PO SCH ×2 (08:49→20:20)
[2022-03-07] MEDS: ROSUVASTATIN CALCIUM 20 MG TAB PO SCH (08:50)
[2022-03-07] MEDS: SPIRONOLACTONE 25 MG TAB PO SCH (08:50)
[2022-03-07] MEDS: CALCIUM 600MG + VIT D 400 IU TAB PO SCH (08:50)
[2022-03-07] MEDS: dexAMETHasone 6 MG in SYRINGE 0 ML IV SCH (08:51)
[2022-03-07] MEDS: oxyCODONE HCL IR 5 MG TAB (IMMEDIATE RELEASE) PO PRN (08:55)
[2022-03-07] MEDS: ICOSAPENT ETHYL 0.5 GM PO SCH ×2 (08:56→20:22)
[2022-03-07] MEDS ORDERED: FUROSEMIDE 40 MG TAB PO SCH (09:00)
[2022-03-07] MEDS ORDERED: LOSARTAN POTASSIUM 50 MG TAB PO SCH (09:00)
[2022-03-07] MEDS: traZODone HCL 50 MG TAB PO SCH (20:20)
[2022-03-07] MEDS: ASPIRIN 81 MG ECTAB PO SCH (20:20)
[2022-03-07] MEDS: DOCUSATE SODIUM/SENNA 50/8.6MG TAB PO SCH (20:22)
[2022-03-07] MEDS ORDERED: LACTATED RINGER'S 500 ML IV ONE (20:44)
[2022-03-07] MEDS ORDERED: LACTATED RINGER'S 1,000 ML IV SCH (21:00)
[2022-03-07 21:05] LABS: Hematocrit (blood only) 24.1 % (34.1-44.9); Mean Corpuscular Hgb Conc 33.2 g/dL (32.0-36.0); Mean Corpuscular Volume 93.4 fL (80.0-100.0); Mean Platelet Volume 10.1 fL (9.4-12.3); Platelet Count 142 K/uL (130-400); RDW Coefficient of Variation 13.9 % (11.5-14.5); RDW Standard Deviation 46.7 fL (36.4-46.3); Red Blood Count 2.58 M/uL (3.93-5.22); White Blood Count 12.36 K/ul (4.8-10.8)
[2022-03-07 21:32] LABS: BUN Creatinine Ratio 24.3 (10-20); Calcium 9.2 mg/dl (8.5-10.1); Creatinine Clr Calc Pharmacy 24.9 ml/min; Est GFR (African American) 40.2 ml/min; Est GFR (Non-African American) 34.7 ml/min; Potassium 4.5 mmol/L (3.5-5.1)
[2022-03-08] MEDS: POLYETHYLENE (MIRALAX) 17 GM PACK PO SCH (00:22)
--- NOTE | 2022-03-08 07:52 | Hospitalist Progress Note ---
Date of Service March 08, 2022 Assessment & Plan (1) Neurogenic claudication due to lumbar spinal stenosis: Plan: POD #3 s/p #1 lumbar decompression bilateral medial facetectomies and foraminotomies L2-L3 L3-L4 L4-5. 2 posterior spinal fusion L2-L3 L3-L4 L4-5. #3 placement of posterior segmental instrumentation L2-L5. #4 placement locally harvested morselized autograft in the posterior gutters. #5 placement of I factor model V toss in the posterior gutters L2-L5. with Dr Escamilla on 03/05. EBL 650 cc. Decadron IV x 3 days -- no further after today WBC wnl, afebrile hgb dropped 12.8--> 7.8, repeat 8.0 Did have significant blood loss anemia from surgery (discussed with surgeon, significant loss w/ surgery) DELPHINE output also totalled 915cc (was on ASA given hx CVAs, thought related to HTN, holter without afib per med clearance), also some dilutional from IVF +orthostatic on exam, 250cc bolus ordered (cr bumped 1.44 last evening) Iron studies obtained --> iron 19, trans % sat 6 --> Venofer 200mg IV ordered for today, repeat dosing while inpatient Pain control/antiemetics prn +BM multiple overnight Episode of urinary incontinence, stress at baseline. Reported similar issues with after steroid injection for her back in the past --> Check UA/cx if indicated *Also had some increased swelling of RUE last evening improved with heat/elevation. pulses are palpable. Monitor PT/OT consulted Continued inpatient stay through the weekend (2) Acute blood loss as cause of postoperative anemia: Plan: acute blood loss anemia as outlined above iron stores checked, deficiency already on folate d/t metotrexate use for RA, but checked B12 as well given normocytic MCV B12 borderline and will order replacement as well -- continue PO at discharge Additional venofer for tomorrow Monitor CBC (3) CAD (coronary artery disease): Plan: Continued on metoprolol, Crestor, Vascepa BID Lasix, losartan resumed 03/07 Continued on aspirin through denice-operative period *Held AM lasix/losartan --> no LE edema as reported in past, getting 250cc NSS/venofer as above Did endorse some SOB w/ exertion, likely from acute blood loss anemia. No chest pain Monitor CBC w/ venofer replacement (4) CKD (chronic kidney disease): Plan: History of glomerulonephritis with IgA nephropathy, baseline creatinine 1.4. Cr 1.44 last evening, improved to 1.1 on AM labs --> held diuretics as above, giving 250cc NSS, Venofer replacement Monitor BMP in AM Remains on metoprolol for BP control/HR Holding SGLT2 during inpatient stay (5) History of CVA (cerebrovascular accident): Plan: History of several strokes, thought to be hypertension related, also may be due to A. fib, however patient not diagnosed with such (has loop recorder--> no afib, per medical clearance note) - Continue on aspirin daily through denice-operative period (6) Hx of congestive heart failure: Plan: Echo 12/24: Normal left ventricular size EF 65% grade 1 diastolic dysfunction normal right ventricular size and function. Mild mitral regurg, mild stenosis, trace tricuspid regurg. Appears dry on exam, +orthostatics Holding diuretics previously resumed, IVF as outlined for 250cc bolus w/ venofer Resume possibly tomorrow depending volume status (7) GERD (gastroesophageal reflux disease): Plan: Continue PPI. (8) Anxiety and depression: Plan: - Continue Cymbalta, gabapentin. - Trazodone at night for sleep. (9) Rheumatoid arthritis: Plan: - On methotrexate with folate supplementation. 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 Impression: 1. Tiny pulmonary nodules as above. No large suspicious nodule. The previously noted opacity in the left upper lung corresponds to chondrocalcinosis. 2. According to Fleischner criteria, no follow-up is required in low risk patients, in high-risk patients, a 12 month follow-up CT can be optionally performed.Never a smoker. Upon review of records, patient w/ hx of breast ca s/p mastectomy. Would rec 12 month f/u CT w/ PCP (11) B12 deficiency: Plan: low normal, IM while inpatient, PO at d/c rec'd Plan continued inpatient stay Hospitalist service will follow along Admission and Anticipated Discharge Date Admission Date: March 05, 2022 Supervising Physician Co-Signing Physician Notes PA Supervision Note: I did not personally see or examine the patient today, but I verified all chan points of YOLY Bobby's assessment and plan with the following exceptions/additions: Recommend transfusing 1 unit PRBCs today for symptomatic acute blood loss anemia with positive orthostatics and lightheadedness Subjective Eval this morning, was hoping to go home but not feeling quite right. Discussed +orthostatics, and anemia/iron deficiency on labs. Discussed with Dr Escamilla, patient did have quite a bit of blood loss, IV iron replacement ordered. Episode of urinary incontinence this moring. Has stress incontinence at baseline from having kids but endorses similar issues after back injection with Dr Martinez. Multiple BM last night, embarrassed about needing assistance with cleaning up. Holding AM diuretics -- no edema (states hx CHF but since changing around her diuretics hasn't had issues with swelling). Discussed 250cc bolus for +orthostatics and planning to hold diuretics and give the Venofer, repeat dose for tomorrow to 300mg if tolerates the 200mg dose. Did have some increased RUE swelling overnight, IV site pulled. Pulses are pal pable, however she stated last night it had gotten red and swollen, improved with warm blankets/elevation. No further erythema, does have some slight swelling to proximal R forearm. Leg symptoms controlled, however she reported no numbness/tingling to her lateral thighs last evening, however does have some today and is hoping she didn't do anything to mess up her surgery.. No fever/chills. +fatigue. No CP. Does endorse shortness of breath with exertion, likely from iron deficiency. Review of Systems Review of Systems: All systems reviewed & are unremarkable except as noted in HPI & below Physical Exam Physical Exam: General: WD/WN elderly female sitting up in bed, NAD, general pallor HEENT: head normocephalic, atraumatic, mm slightly dry, trachea midline Resp: CTAB, diminished in the bases, on room air CV: RRR, no m/r/g, no tibial edema/pitting edema, pulses palpable GI: +BS, soft, NT MSK/NEuro: moves all extremities, no focal deficits, strength equal dorsiflexion/plantar flexion, NVI Psych: AOx3, pleasant and cooperative, frustrated about having urinary incontinence this morning Results & Data Results & Data ([facility]) Vital Signs (Past 12 Hours) Vital Signs Temp Pulse Resp BP BP Pulse Ox O2 Del Method 03/08/22 07:26 36.7 C 73 18 111/67 95 Room Air 03/07/22 20:42 36.8 C 72 18 106/55 L 96 Room Air 03/07/22 20:11 37.1 C 66 18 89/48 L 95 Room Air Laboratory Results 03/08/22 03/08/22 03/08/22 Range/Units 12:14 11:32 08:58 WBC (4.8-10.8) K/ul RBC (3.93-5.22) M/uL Hgb (12.0-16.0) g/dl Hct (34.1-44.9) % MCV (80.0-100.0) fL MCH (25.0-34.0) pg MCHC (32.0-36.0) g/dL RDW Std Deviation (36.4-46.3) fL RDW Coeff of Lissy (11.5-14.5) % Plt Count (130-400) K/uL MPV (9.4-12.3) fL Sodium (136-145) mmol/L Potassium (3.5-5.1) mmol/L Chloride (98-107) mmol/L Carbon Dioxide (21-32) mmol/L Anion Gap (3-11) BUN (6-23) mg/dl Creatinine (0.6-1.2) mg/dl Est Cr Clr Drug Dosing ml/min Est GFR ( Amer) ml/min Est GFR (Non-Af Amer) ml/min BUN/Creatinine Ratio (10-20) Glucose (70-99(Fasting)) mg/dl POC Glucose 142 H (70-99) mg/dl Calcium (8.5-10.1) mg/dl Magnesium (1.7-2.4) mg/dl Iron (35-150) mcg/dl TIBC (250-450) mcg/dl Unsaturated IBC (155-355) mcg/dl Transferrin % Sat (15-50) % Ferritin (8-388) ng/ml Vitamin B12 276 (180-914) pg/ml Urine Color Yellow Urine Appearance Clear (Clear) Urine pH 5.5 (4.5-7.5) Ur Specific [place] 1.008 (1.000-1.030) Urine Protein Negative (Negative) Urine Glucose (UA) 1+ H (Negative) Urine Ketones Negative (Negative) Urine Blood Negative (Negative) Urine Nitrite Negative (Negative) Urine Bilirubin Negative (Negative) Urine Urobilinogen Negative (Negative) Ur Leukocyte Esterase Negative (Negative) Crossmatch 03/08/22 03/08/22 03/08/22 Range/Units 08:58 08:58 08:58 WBC 7.64 (4.8-10.8) K/ul RBC 2.62 L (3.93-5.22) M/uL Hgb 8.0 L (12.0-16.0) g/dl Hct 24.5 L (34.1-44.9) % MCV 93.5 (80.0-100.0) fL MCH 30.5 (25.0-34.0) pg MCHC 32.7 (32.0-36.0) g/dL RDW Std Deviation 46.9 H (36.4-46.3) fL RDW Coeff of Lissy 13.9 (11.5-14.5) % Plt Count 146 (130-400) K/uL MPV 10.2 (9.4-12.3) fL Sodium 135 L Cancelled (136-145) mmol/L Potassium 4.4 Cancelled (3.5-5.1) mmol/L Chloride 101 Cancelled (98-107) mmol/L Carbon Dioxide 27 Cancelled (21-32) mmol/L Anion Gap 7 Cancelled (3-11) BUN 32 H Cancelled (6-23) mg/dl Creatinine 1.10 D Cancelled (0.6-1.2) mg/dl Est Cr Clr Drug Dosing 32.6 Cancelled ml/min Est GFR ( Amer) 55.7 Cancelled ml/min Est GFR (Non-Af Amer) 48.1 Cancelled ml/min BUN/Creatinine Ratio 29.1 H Cancelled (10-20) Glucose 253 H Cancelled (70-99(Fasting)) mg/dl POC Glucose (70-99) mg/dl Calcium 9.1 Cancelled (8.5-10.1) mg/dl Magnesium 2.3 (1.7-2.4) mg/dl Iron 19 L (35-150) mcg/dl TIBC 305 (250-450) mcg/dl Unsaturated IBC 286 (155-355) mcg/dl Transferrin % Sat 6 L (15-50) % Ferritin 16.0 (8-388) ng/ml Vitamin B12 (180-914) pg/ml Urine Color Urine Appearance (Clear) Urine pH (4.5-7.5) Ur Specific [place] (1.000-1.030) Urine Protein (Negative) Urine Glucose (UA) (Negative) Urine Ketones (Negative) Urine Blood (Negative) Urine Nitrite (Negative) Urine Bilirubin (Negative) Urine Urobilinogen (Negative) Ur Leukocyte Esterase (Negative) Crossmatch 03/08/22 03/07/22 03/07/22 Range/Units 08:22 20:58 20:58 WBC 12.36 H (4.8-10.8) K/ul RBC 2.58 L (3.93-5.22) M/uL Hgb 8.0 L (12.0-16.0) g/dl Hct 24.1 L (34.1-44.9) % MCV 93.4 (80.0-100.0) fL MCH 31.0 (25.0-34.0) pg MCHC 33.2 (32.0-36.0) g/dL RDW Std Deviation 46.7 H (36.4-46.3) fL RDW Coeff of Lissy 13.9 (11.5-14.5) % Plt Count 142 (130-400) K/uL MPV 10.1 (9.4-12.3) fL Sodium 134 L (136-145) mmol/L Potassium 4.5 (3.5-5.1) mmol/L Chloride 101 (98-107) mmol/L Carbon Dioxide 26 (21-32) mmol/L Anion Gap 7 (3-11) BUN 35 H (6-23) mg/dl Creatinine 1.44 H D (0.6-1.2) mg/dl Est Cr Clr Drug Dosing 24.9 ml/min Est GFR ( Amer) 40.2 ml/min Est GFR (Non-Af Amer) 34.7 ml/min BUN/Creatinine Ratio 24.3 H (10-20) Glucose 168 H (70-99(Fasting)) mg/dl POC Glucose 144 H (70-99) mg/dl Calcium 9.2 (8.5-10.1) mg/dl Magnesium (1.7-2.4) mg/dl Iron (35-150) mcg/dl TIBC (250-450) mcg/dl Unsaturated IBC (155-355) mcg/dl Transferrin % Sat (15-50) % Ferritin (8-388) ng/ml Vitamin B12 (180-914) pg/ml Urine Color Urine Appearance (Clear) Urine pH (4.5-7.5) Ur Specific [place] (1.000-1.030) Urine Protein (Negative) Urine Glucose (UA) (Negative) Urine Ketones (Negative) Urine Blood (Negative) Urine Nitrite (Negative) Urine Bilirubin (Negative) Urine Urobilinogen (Negative) Ur Leukocyte Esterase (Negative) Crossmatch 03/07/22 03/07/22 03/05/22 Range/Units 20:38 17:09 06:50 WBC (4.8-10.8) K/ul RBC (3.93-5.22) M/uL Hgb (12.0-16.0) g/dl Hct (34.1-44.9) % MCV (80.0-100.0) fL MCH (25.0-34.0) pg MCHC (32.0-36.0) g/dL RDW Std Deviation (36.4-46.3) fL RDW Coeff of Lissy (11.5-14.5) % Plt Count (130-400) K/uL MPV (9.4-12.3) fL Sodium (136-145) mmol/L Potassium (3.5-5.1) mmol/L Chloride (98-107) mmol/L Carbon Dioxide (21-32) mmol/L Anion Gap (3-11) BUN (6-23) mg/dl Creatinine (0.6-1.2) mg/dl Est Cr Clr Drug Dosing ml/min Est GFR ( Amer) ml/min Est GFR (Non-Af Amer) ml/min BUN/Creatinine Ratio (10-20) Glucose (70-99(Fasting)) mg/dl POC Glucose 183 H 214 H (70-99) mg/dl Calcium (8.5-10.1) mg/dl Magnesium (1.7-2.4) mg/dl Iron (35-150) mcg/dl TIBC (250-450) mcg/dl Unsaturated IBC (155-355) mcg/dl Transferrin % Sat (15-50) % Ferritin (8-388) ng/ml Vitamin B12 (180-914) pg/ml Urine Color Urine Appearance (Clear) Urine pH (4.5-7.5) Ur Specific [place] (1.000-1.030) Urine Protein (Negative) Urine Glucose (UA) (Negative) Urine Ketones (Negative) Urine Blood (Negative) Urine Nitrite (Negative) Urine Bilirubin (Negative) Urine Urobilinogen (Negative) Ur Leukocyte Esterase (Negative) Crossmatch See Detail PG Care Time/CCT Total # of Minutes Spent Total Time Spent with Patient: Total time spent is greater than 50% in coordination of care (as documented) at patient's floor/unit and/or counseling patient: Coding Level of Care Code 68674 Subseq Hosp Care Lvl 3 Diagnoses Neurogenic claudication due to lumbar spinal stenosis M48.062 Acute blood loss as cause of postoperative anemia D62 CAD (coronary artery disease) I25.10 CKD (chronic kidney disease) N18.9 History of CVA (cerebrovascular accident) Z86.73 Hx of congestive heart failure Z86.79 GERD (gastroesophageal reflux disease) K21.9 Anxiety and depression F41.9; F32.A Rheumatoid arthritis M06.9 Diabetes mellitus, type II E11.9 B12 deficiency E53.8
--- NOTE | 2022-03-08 08:45 | Pharmacy Report ---
Pharmacy Glycemic Short Note 2 - Date of Service March 08, 2022 - Glycemic Short BSG Results (Last 24 hours): 03/07/22 03/07/22 03/07/22 11:55 17:09 20:38 Glucose POC Glucose 165 H 214 H 183 H 03/07/22 03/08/22 20:58 08:22 Glucose 168 H POC Glucose 144 H OUTPATIENT ANTIDIABETIC REGIMEN: * Jardiance 10 mg PO daily * Metformin 850 mg PO BIDM HbA1c: 7.5% (02/19/22) ASSESSMENT: 03/08/22 * BSGs remained elevated despite tight Novolog parameters * Fasting BSG improving 163 -> 159 -> 144 mg/dL * Patient refused last dose of IV dexamethasone this morning, discontinued corresponding Lantus order * Had originally planned to tighten Novolog parameters, but given steroid discontinuation, will loosen today * Probable discharge this weekend 03/06/22 * BSGs mildly elevated yesterday postoperatively, ranging 154-199 mg/dL * Fasting BSG of 163 mg/dL this morning - will increase Lantus to ~0.4 unit/kg with dexamethasone today 03/05/22 * is a 76 year old female POD #0 s/p lumbar decompression fusion * Received 4 mg IV dexamethasone in OR and ordered 6 mg IV daily ongoing * Reasonable HbA1c based on age with oral agents only * BSGs elevated so far today, preop BSG of 149 mg/dL, postop BSG of 214 mg/dL * Will give ~0.3 unit/kg basal to cover steroids and weight-based stress of 3 Novolog parameters with 0000 check PLAN FOR INPATIENT GLYCEMIC CONTROL: * Hold outpatient oral diabetes medications * Basal insulin - decrease in light of steroid discontinuation * Lantus 0-10 units SC HS (see EHR for details) * Bolus insulin - loosen * NovoLog per scale ACHS or Q6hrs while NPO * Goal Range: Low 110 mg/dL - High 140 mg/dL * Correction Factor: 30 mg/dL/unit * Nutritional / Prandial insulin per carb ratio of 1 unit per 9 grams CHO consumed
[2022-03-08] MEDS: CALCIUM 600MG + VIT D 400 IU TAB PO SCH (08:57)
[2022-03-08] MEDS: DULoxetine HCL 30 MG CAP PO SCH (08:57)
[2022-03-08] MEDS: FOLIC ACID 1 MG TAB PO SCH (08:57)
[2022-03-08] MEDS: GABAPENTIN 300 MG CAP PO SCH ×2 (08:59→21:03)
[2022-03-08] MEDS: ROSUVASTATIN CALCIUM 20 MG TAB PO SCH (09:00)
[2022-03-08] MEDS: PANTOprazole 40 MG TAB PO SCH (09:00)
[2022-03-08] MEDS: ICOSAPENT ETHYL 0.5 GM PO SCH ×2 (09:01→21:04)
[2022-03-08] MEDS: INSULIN ASPART PER UNIT SC SCH ×4 (09:12→21:12)
[2022-03-08 09:17] LABS: Hematocrit (blood only) 24.5 % (34.1-44.9); Mean Corpuscular Hemoglobin 30.5 pg (25.0-34.0); Mean Corpuscular Hgb Conc 32.7 g/dL (32.0-36.0); Mean Corpuscular Volume 93.5 fL (80.0-100.0); Mean Platelet Volume 10.2 fL (9.4-12.3); Platelet Count 146 K/uL (130-400); RDW Coefficient of Variation 13.9 % (11.5-14.5); RDW Standard Deviation 46.9 fL (36.4-46.3); Red Blood Count 2.62 M/uL (3.93-5.22); White Blood Count 7.64 K/ul (4.8-10.8)
[2022-03-08] MEDS: METOPROLOL TARTRATE 50 MG TAB PO SCH ×2 (09:19→21:02)
[2022-03-08 09:38] LABS: BUN Creatinine Ratio 29.1 (10-20); Calcium 9.1 mg/dl (8.5-10.1); Creatinine Clr Calc Pharmacy 32.6 ml/min; Est GFR (African American) 55.7 ml/min; Est GFR (Non-African American) 48.1 ml/min; Magnesium 2.3 mg/dl (1.7-2.4); Potassium 4.4 mmol/L (3.5-5.1)
[2022-03-08] MEDS ORDERED: IRON SUCROSE 200 MG in 0.9 % SODIUM CHLORIDE 100 ML IV ONE (10:01)
[2022-03-08] MEDS ORDERED: SODIUM CHLORIDE 0.9% 1000ML 250 ML IV ONE (10:01)
[2022-03-08] MEDS: LANTUS PER UNIT CHARGE SQ SCH (10:07)
[2022-03-08] MEDS: dexAMETHasone 6 MG in SYRINGE 0 ML IV SCH (10:07)
--- NOTE | 2022-03-08 10:29 | Orthopedic Progress Note ---
Date of Service March 08, 2022 Assessment & Plan (1) Neurogenic claudication due to lumbar spinal stenosis: Plan: At this time continue physical therapy assess her progress throughout the next day or so and hopefully discharge home. Admission and Anticipated Discharge Date Admission Date: March 05, 2022 Subjective Back pain is controlled. Patient is concerned that she had some urinary incontinence last night. She is tolerating physical therapy. Physical Exam Physical Exam: On exam she is in the chair at the bedside. She is comfortable at this time. Good strength testing. Results & Data ([facility]) Vital Signs (Past 12 Hours) Vital Signs Temp Pulse Resp BP Pulse Ox O2 Del Method 03/08/22 09:10 72 106/49 L 03/08/22 07:26 36.7 C 73 18 111/67 95 Room Air
[2022-03-08] MEDS: SPIRONOLACTONE 25 MG TAB PO SCH (10:30)
[2022-03-08 11:54] LABS: Appearance Urine Clear (Clear); Bilirubin Urine Negative (Negative); Blood Urine Negative (Negative); Color Urine Yellow; Glucose Urine UA 1+ (Negative); Ketones Urine Negative (Negative); Leukocyte Esterase Urine Negative (Negative); Nitrite Urine Negative (Negative); Protein Urine Negative (Negative); Specific Gravity Urine 1.008 (1.000-1.030); Urobilinogen Urine Negative (Negative); pH Urine 5.5 (4.5-7.5)
[2022-03-08] MEDS: ACETAMINOPHEN 500 MG TAB PO PRN ×2 (12:17→22:15)
[2022-03-08] MEDS: CYANOCOBALAMIN 1000 MCG/ML VIAL IM SCH (14:32)
[2022-03-08] MEDS ORDERED: SODIUM CHLORIDE 0.9% 250 ML IV PRN ×2 (15:36→15:49)
[2022-03-08] MEDS ORDERED: LANTUS PER UNIT CHARGE SQ SCH (21:00)
[2022-03-08] MEDS: ASPIRIN 81 MG ECTAB PO SCH (21:03)
[2022-03-08] MEDS: traZODone HCL 50 MG TAB PO SCH (21:03)
[2022-03-08] MEDS: DOCUSATE SODIUM/SENNA 50/8.6MG TAB PO SCH (21:03)
[2022-03-08] MEDS: oxyCODONE HCL IR 5 MG TAB (IMMEDIATE RELEASE) PO PRN (22:16)
[2022-03-09] MEDS: traMADol HCL 50 MG TABLET PO PRN ×4 (00:06→22:12)
[2022-03-09 06:54] LABS: Hematocrit (blood only) 26.4 % (34.1-44.9); Hemoglobin 8.7 g/dl (12.0-16.0); Mean Corpuscular Hemoglobin 30.5 pg (25.0-34.0); Mean Corpuscular Volume 92.6 fL (80.0-100.0); Mean Platelet Volume 10.2 fL (9.4-12.3); Nucleated RBC # (auto) 0.03 K/uL (0-0); Nucleated RBC % (auto) 0.5 %; Platelet Count 134 K/uL (130-400); RDW Coefficient of Variation 14.5 % (11.5-14.5); RDW Standard Deviation 48.1 fL (36.4-46.3); Red Blood Count 2.85 M/uL (3.93-5.22); White Blood Count 6.02 K/ul (4.8-10.8)
[2022-03-09 07:19] LABS: BUN Creatinine Ratio 25.5 (10-20); Calcium 8.8 mg/dl (8.5-10.1); Creatinine Clr Calc Pharmacy 32.6 ml/min; Est GFR (African American) 55.7 ml/min; Est GFR (Non-African American) 48.1 ml/min; Magnesium 2.2 mg/dl (1.7-2.4); Potassium 4.7 mmol/L (3.5-5.1)
--- NOTE | 2022-03-09 08:21 | Hospitalist Progress Note ---
Date of Service March 09, 2022 Assessment & Plan (1) Neurogenic claudication due to lumbar spinal stenosis: Plan: POD #5 s/p #1 lumbar decompression bilateral medial facetectomies and foraminotomies L2-L3 L3-L4 L4-5. 2 posterior spinal fusion L2-L3 L3-L4 L4-5. #3 placement of posterior segmental instrumentation L2-L5. #4 placement locally harvested morselized autograft in the posterior gutters. #5 placement of I factor model V toss in the posterior gutters L2-L5. with Dr Escamilla on 03/05. Decadron IV x 3 days -- no further after after 03/08 WBC wnl, afebrile hgb dropped 12.8--> 7.8, repeat 8.0 Did have significant blood loss anemia from surgery (discussed with surgeon, significant loss w/ surgery) EBL 650 cc. DELPHINE output totalled 915cc (was on ASA given hx CVAs, thought related to HTN, holter without afib per med clearance) +orthostatic on exam 03/08, 250cc bolus ordered (cr bumped 1.44 last evening, diuretics placed on hold) Iron studies obtained --> iron 19, trans % sat 6 --> Venofer 200mg IV ordered 03/08, repeat ordered 03/09 but developed SIGNIFICANT HYPOTENSION, asymptomatic. STOPPED VENOFER. will add to allergies and start PO iron 1u PRBC given hypotension/SOB & +orthostatic vitals 03/08 --> hgb improved to 8.7 on am labs --> checking orthostatics --> if continues to be symptomatic/+orthostatics, consider additional unit PRBC Pain control/antiemetics prn +BM multiple overnight 03/07-03/08 Episode of urinary incontinence, stress at baseline. Reported similar issues with after steroid injection for her back in the past --> Check UA/cx if indicated --> UA w/o evidence for infection *Also had some increased swelling of RUE evening 03/08 improved with heat/elevation. pulses are palpable. Monitor --> possible underlying Von Willebrand disease given her daughter with bleeding disorder and has to get Amicar infusion with any surgeries to prevent bleeding. Patient also on ASA check von Willebrand factor, send out PT/OT consulted Continued inpatient stay through the weekend (2) Acute blood loss as cause of postoperative anemia: Plan: acute blood loss anemia as outlined above iron stores checked, deficiency as above -- start PO supplementation given issues with IV venofer/hypotension during administration already on folate d/t methotrexate use for RA, but checked B12 as well given normocytic MCV -- B12 borderline and will order replacement as well -- continue PO at discharge hgb improved, no longer symptomatic. orthostatics improved (3) CAD (coronary artery disease): Plan: Continued on metoprolol, Crestor, Vascepa BID Lasix, losartan resumed 03/07 Continued on aspirin through denice-operative period *Held AM Lasix/losartan --> no LE edema as reported in past, getting 250cc NSS/venofer as above Did endorse some SOB w/ exertion 03/08, likely from acute blood loss anemia. No chest pain (4) CKD (chronic kidney disease): Plan: History of glomerulonephritis with IgA nephropathy, baseline creatinine 1.4. Cr 1.44 last evening, improved to 1.1 on AM labs--> held diuretics as above, g iving 250cc NSS, Venofer replacement Monitor BMP in AM Remains on metoprolol for BP control/HR but place don hold for low BPs Holding SGLT2 during inpatient stay (5) History of CVA (cerebrovascular accident): Plan: History of several strokes, thought to be hypertension related, also may be due to A. fib, however patient not diagnosed with such (has loop recorder--> no afib, per medical clearance note) - Continue on aspirin daily through denice-operative period (6) Hx of congestive heart failure: Plan: Echo 12/24: Normal left ventricular size EF 65% grade 1 diastolic dysfunction normal right ventricular size and function. Mild mitral regurg, mild stenosis, trace tricuspid regurg. Appeared dry on exam 03/08, +orthostatics Holding diuretics previously resumed, IVF as outlined for 250cc bolus w/ venofer Resume possibly tomorrow depending volume status, held again 03/09 and increasing her PO intake (7) GERD (gastroesophageal reflux disease): Plan: Continue PPI. (8) Anxiety and depression: Plan: - Continue Cymbalta, gabapentin. - Trazodone at night for sleep. worsened in days past with the steroid use suspected, improved since off of (9) Rheumatoid arthritis: Plan: - On methotrexate with folate supplementation. 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 Impression: 1. Tiny pulmonary nodules as above. No large suspicious nodule. The previously noted opacity in the left upper lung corresponds to chondrocalcinosis. 2. According to Fleischner criteria, no follow-up is required in low risk patients, in high-risk patients, a 12 month follow-up CT can be optionally performed.Never a smoker. Upon review of records, patient w/ hx of breast ca s/p mastectomy -- per , this was back 1987 --> she states she does get regular mammogram Would rec 12 month f/u CT w/ PCP (11) B12 deficiency: Plan: low normal, IM while inpatient, PO at d/c rec'd Plan continued inpatient stay hospitalist service will follow along Admission and Anticipated Discharge Date Admission Date: March 05, 2022 Supervising Physician Co-Signing Physician Notes PA Supervision Note: I did not personally see or examine the patient today, but I verified all chan points of YOLY Bobby's assessment and plan with the following exceptions/additions: None Subjective eval this morning, feeling great this morning BP dropped a little with venofer, discussed discontinuing this and will start PO iron for AM. No lightheadedness/dizziness, no SOB/CP/ No further issues with urinary incontinence since steroids discontinued. No fever/chills. Passing gas but no further BM. Following w/ Dr Duatre but [facility] pulled all providers from [place], she is looking where to travel to follow w/ her but will eventually need new pcp she is thinking. discussed to let us know if she would like assistance in finding new pcp as she didn't w ant to switch to [facility] either but "will do what I have to" Review of Systems Review of Systems: All systems reviewed & are unremarkable except as noted in HPI & below Physical Exam Physical Exam: General: WD/WN elderly female sitting up in chair, NAD, improvement in mood/color HEENT: head normocephalic, atraumatic, mm slighty dry (improved from yesterday), trachea midline Resp: CTAB, diminished in the bases, on room air CV: RRR, no m/r/g, no tibial edema/pitting edema, pulses palpable GI: +BS, soft, NT MSK/NEuro: moves all extremities, no focal deficits, strength equal dorsiflexion/plantar flexion, NVI dressing c/d/i, no bleeding/hematoma noted, NO DELPHINE drain Psych: AOx3, pleasant and cooperative Results & Data Results & Data ([facility]) Vital Signs (Past 12 Hours) Vital Signs Temp Pulse Pulse Resp BP BP Pulse Ox 03/09/22 08:13 36.8 C 66 18 117/61 94 03/08/22 21:59 37 C 81 16 105/56 L 94 03/08/22 20:59 37 C 65 18 95/47 L 96 O2 Del Method 03/09/22 08:13 Room Air 03/08/22 21:59 03/08/22 20:59 Laboratory Results 03/09/22 03/09/22 03/09/22 Range/Units 16:57 11:50 08:15 WBC (4.8-10.8) K/ul RBC (3.93-5.22) M/uL Hgb (12.0-16.0) g/dl Hct (34.1-44.9) % MCV (80.0-100.0) fL MCH (25.0-34.0) pg MCHC (32.0-36.0) g/dL RDW Std Deviation (36.4-46.3) fL RDW Coeff of Lissy (11.5-14.5) % Plt Count (130-400) K/uL MPV (9.4-12.3) fL Absolute Nucleated RBC (0-0) K/uL Nucleated RBC % (auto) % Sodium (136-145) mmol/L Potassium (3.5-5.1) mmol/L Chloride (98-107) mmol/L Carbon Dioxide (21-32) mmol/L Anion Gap (3-11) BUN (6-23) mg/dl Creatinine (0.6-1.2) mg/dl Est Cr Clr Drug Dosing ml/min Est GFR ( Amer) ml/min Est GFR (Non-Af Amer) ml/min BUN/Creatinine Ratio (10-20) Glucose (70-99(Fasting)) mg/dl POC Glucose 140 H 133 H 126 H (70-99) mg/dl Calcium (8.5-10.1) mg/dl Magnesium (1.7-2.4) mg/dl Crossmatch 03/09/22 03/09/22 03/08/22 Range/Units 06:19 06:19 21:00 WBC 6.02 (4.8-10.8) K/ul RBC 2.85 L (3.93-5.22) M/uL Hgb 8.7 L (12.0-16.0) g/dl Hct 26.4 L (34.1-44.9) % MCV 92.6 (80.0-100.0) fL MCH 30.5 (25.0-34.0) pg MCHC 33.0 (32.0-36.0) g/dL RDW Std Deviation 48.1 H (36.4-46.3) fL RDW Coeff of Lissy 14.5 (11.5-14.5) % Plt Count 134 (130-400) K/uL MPV 10.2 (9.4-12.3) fL Absolute Nucleated RBC 0.03 H (0-0) K/uL Nucleated RBC % (auto) 0.5 % Sodium 140 (136-145) mmol/L Potassium 4.7 (3.5-5.1) mmol/L Chloride 106 (98-107) mmol/L Carbon Dioxide 31 (21-32) mmol/L Anion Gap 3 (3-11) BUN 28 H (6-23) mg/dl Creatinine 1.10 (0.6-1.2) mg/dl Est Cr Clr Drug Dosing 32.6 ml/min Est GFR ( Amer) 55.7 ml/min Est GFR (Non-Af Amer) 48.1 ml/min BUN/Creatinine Ratio 25.5 H (10-20) Glucose 118 H (70-99(Fasting)) mg/dl POC Glucose 185 H (70-99) mg/dl Calcium 8.8 (8.5-10.1) mg/dl Magnesium 2.2 (1.7-2.4) mg/dl Crossmatch 11/04/22 Range/Units 16:23 WBC (4.8-10.8) K/ul RBC (3.93-5.22) M/uL Hgb (12.0-16.0) g/dl Hct (34.1-44.9) % MCV (80.0-100.0) fL MCH (25.0-34.0) pg MCHC (32.0-36.0) g/dL RDW Std Deviation (36.4-46.3) fL RDW Coeff of Lissy (11.5-14.5) % Plt Count (130-400) K/uL MPV (9.4-12.3) fL Absolute Nucleated RBC (0-0) K/uL Nucleated RBC % (auto) % Sodium (136-145) mmol/L Potassium (3.5-5.1) mmol/L Chloride (98-107) mmol/L Carbon Dioxide (21-32) mmol/L Anion Gap (3-11) BUN (6-23) mg/dl Creatinine (0.6-1.2) mg/dl Est Cr Clr Drug Dosing ml/min Est GFR ( Amer) ml/min Est GFR (Non-Af Amer) ml/min BUN/Creatinine Ratio (10-20) Glucose (70-99(Fasting)) mg/dl POC Glucose (70-99) mg/dl Calcium (8.5-10.1) mg/dl Magnesium (1.7-2.4) mg/dl Crossmatch See Detail PG Care Time/CCT Total # of Minutes Spent Total Time Spent with Patient: Total time spent is greater than 50% in coordination of care (as documented) at patient's floor/unit and/or counseling patient: Coding Level of Care Code 64942 Subseq Hosp Care Lvl 3 Diagnoses Neurogenic claudication due to lumbar spinal stenosis M48.062 Acute blood loss as cause of postoperative anemia D62 CAD (coronary artery disease) I25.10 CKD (chronic kidney disease) N18.9 History of CVA (cerebrovascular accident) Z86.73 Hx of congestive heart failure Z86.79 GERD (gastroesophageal reflux disease) K21.9 Anxiety and depression F41.9; F32.A Rheumatoid arthritis M06.9 Diabetes mellitus, type II E11.9 B12 deficiency E53.8
--- NOTE | 2022-03-09 08:55 | Orthopedic Progress Note ---
Date of Service March 09, 2022 Assessment & Plan (1) Neurogenic claudication due to lumbar spinal stenosis: Plan: We will continue physical therapy today. As long she progresses appropriately would anticipate discharge home tomorrow. Admission and Anticipated Discharge Date Admission Date: March 05, 2022 Subjective Back pain controlled leg pain markedly improved. Urinary function improved. Physical Exam Physical Exam: On exam patient is in bed. She is comfortable. Distracted testing. Results & Data ([facility]) Vital Signs (Past 12 Hours) Vital Signs Temp Pulse Pulse Resp BP BP Pulse Ox 03/09/22 08:13 36.8 C 66 18 117/61 94 03/08/22 21:59 37 C 81 16 105/56 L 94 03/08/22 20:59 37 C 65 18 95/47 L 96 O2 Del Method 03/09/22 08:13 Room Air 03/08/22 21:59 03/08/22 20:59
[2022-03-09] MEDS: INSULIN ASPART PER UNIT SC SCH ×4 (09:04→21:08)
[2022-03-09] MEDS: ACETAMINOPHEN 500 MG TAB PO PRN ×2 (09:16→17:15)
[2022-03-09] MEDS: METOPROLOL TARTRATE 50 MG TAB PO SCH (09:17)
[2022-03-09] MEDS: GABAPENTIN 300 MG CAP PO SCH ×2 (09:17→21:00)
[2022-03-09] MEDS: CALCIUM 600MG + VIT D 400 IU TAB PO SCH (09:17)
[2022-03-09] MEDS: FOLIC ACID 1 MG TAB PO SCH (09:18)
[2022-03-09] MEDS: ROSUVASTATIN CALCIUM 20 MG TAB PO SCH (09:18)
[2022-03-09] MEDS: ICOSAPENT ETHYL 0.5 GM PO SCH ×2 (09:18→21:00)
[2022-03-09] MEDS: CYANOCOBALAMIN 1000 MCG/ML VIAL IM SCH (09:18)
[2022-03-09] MEDS: PANTOprazole 40 MG TAB PO SCH (09:18)
[2022-03-09] MEDS: DULoxetine HCL 30 MG CAP PO SCH (09:18)
[2022-03-09] MEDS ORDERED: IRON SUCROSE 200 MG in 0.9 % SODIUM CHLORIDE 100 ML IV ONE (09:20)
[2022-03-09] MEDS: SPIRONOLACTONE 25 MG TAB PO SCH (09:21)
[2022-03-09] MEDS: ASPIRIN 81 MG ECTAB PO SCH (21:00)
[2022-03-09] MEDS: DOCUSATE SODIUM/SENNA 50/8.6MG TAB PO SCH (21:00)
[2022-03-09] MEDS: traZODone HCL 50 MG TAB PO SCH (21:00)
[2022-03-10] MEDS: ACETAMINOPHEN 500 MG TAB PO PRN (06:15)
[2022-03-10] MEDS: traMADol HCL 50 MG TABLET PO PRN ×2 (06:15→10:23)
--- NOTE | 2022-03-10 07:51 | Hospitalist Progress Note ---
Date of Service March 10, 2022 Assessment & Plan (1) Neurogenic claudication due to lumbar spinal stenosis: Plan: POD #5 s/p #1 lumbar decompression bilateral medial facetectomies and foraminotomies L2-L3 L3-L4 L4-5. 2 posterior spinal fusion L2-L3 L3-L4 L4-5. #3 placement of posterior segmental instrumentation L2-L5. #4 placement locally harvested morselized autograft in the posterior gutters. #5 placement of I factor model V toss in the posterior gutters L2-L5. with Dr Escamilla on 03/05. Decadron IV x 3 days inpatient WBC wnl, afebrile hgb dropped 12.8--> 7.8, repeat 8.0 Did have significant blood loss anemia from surgery (discussed with surgeon, significant loss w/ surgery) EBL 650 cc. DELPHINE output totalled 915cc (was on ASA given hx CVAs, thought related to HTN, holter without afib per med clearance) +orthostatic on exam 03/08, 250cc bolus ordered (cr bumped 1.44 last evening, diuretics placed on hold) Iron studies obtained --> iron 19, trans % sat 6 --> Venofer 200mg IV ordered 03/08, repeat ordered 03/09 but developed SIGNIFICANT HYPOTENSION, asymptomatic. STOPPED VENOFER. Added to allergies 1u PRBC given hypotension/SOB & +orthostatic vitals 03/08 --> hgb improved to 9.4 prior to discharge, continue PO iron daily Orthostatics improved on repeat, no further lightheaded/dizziness Pain control/antiemetics/bowel regimen per primary service UA obtained due to incontinence with steroids post-op, no evidence for infection PT/OT -- ok for return home Discharged home with today Of note, patient with hypotension/lightheadedness and Bps stable off meds while giving IVF/blood products in days past and did not have any increased LE edema until slight trace edema prior to discharge Discussed continuing her metoprolol, but to continue Lasix/spironolactone for weight gain/edema and close f/u with her PCP recommended--> they are in middle of transitioning/following Dr Duarte, however did discuss with patient if any issues w/ PCP follow up would b e happy to arrange. Given number for office prior to d/c to call if any issues Episode of urinary incontinence, stress at baseline. Reported similar issues with after steroid injection for her back in the past --> Check UA/Cx if indicated --> UA w/o evidence for infection *Also had some increased swelling of RUE evening 03/08 improved with heat/elevation. pulses are palpable. Monitor Important to note, possible underlying Von Willebrand disease given her daughter with bleeding disorder and has to get Amicar infusion with any surgeries to prevent bleeding. Patient also on ASA check von Willebrand factor, send out she did have issues with bleeding after mastectomy for breast ca, never treated (2) Acute blood loss as cause of postoperative anemia: Plan: acute blood loss anemia as outlined above iron stores checked, deficiency as above -- start PO supplementation 03/10 given issues with IV venofer/hypotension during administration already on folate d/t methotrexate use for RA, but checked B12 as well given normocytic MCV -- B12 borderline and ordered replacement as well -- continued PO at discharge hgb improved 9.4, no longer symptomatic. orthostatics improved rec'd to continue PO ferrous sulfate x1 month (3) CAD (coronary artery disease): Plan: Continued on metoprolol, Crestor, Vascepa BID, aspirin 1u PRBC for hgb <8 , hgb 9.4 prior to discharge Continue losartan at discharge continue spironolactone/lasix as needed as outlined above f/u PCP/cards (4) CKD (chronic kidney disease): Plan: History of glomerulonephritis with IgA nephropathy, baseline creatinine 1.4. Cr 1.44, improved with hydratoin/blood products/iron Cr 0.89 prior to discharge Continue losartan BID, metoprolol at discharge To continue low salt diet, monitor weights resume spironolactone/lasix if needed for weight gain Holding SGLT2 during inpatient stay -- continued at d/c (5) History of CVA (cerebrovascular accident): Plan: History of several strokes, thought to be hypertension related, also may be due to A. fib, however patient not diagnosed with such (has loop recorder--> no afib, per medical clearance note) - Continued on aspirin daily through denice-operative period (6) Hx of congestive heart failure: Plan: Echo 12/24: Normal left ventricular size EF 65% grade 1 diastolic dysfunction normal right ventricular size and function. Mild mitral regurg, mild stenosis, trace tricuspid regurg. Appeared dry on exam 03/08, +orthostatics -- given 250cc bolus, venofer, 1u PRBC with improvement Had been euvolemic with diuretics held through 03/09, slight elevation in weight prior to d/c and given dose of spironolactone and to continue monitoring weight/edema at home and only use the lasix/spironolactone as needed for such. Call if weight gain >3lb in 24 hours or >5lb in a week (7) GERD (gastroesophageal reflux disease): Plan: Continue PPI. (8) Anxiety and depression: Plan: - Continue Cymbalta, gabapentin. - Trazodone at night for sleep. Worsened with steroids, improved once this wore off (9) Rheumatoid arthritis: Plan: - On methotrexate with folate supplementation. 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 Impression: 1. Tiny pulmonary nodules as above. No large suspicious nodule. The previously noted opacity in the left upper lung corresponds to chondrocalcinosis. 2. According to Fleischner criteria, no follow-up is required in low risk patients, in high-risk patients, a 12 month follow-up CT can be optionally performed.Never a smoker. Upon review of records, patient w/ hx of breast ca s/p mastectomy -- per , this was back 1987 --> she states she does get regular mammogram Recommend 12 month f/u CT w/ PCP (11) B12 deficiency: Plan: low normal, IM while inpatient, PO at d/c rec'd Plan planning for dc this afternoon Admission and Anticipated Discharge Date Admission Date: March 05, 2022 Supervising Physician Co-Signing Physician Notes PA Supervision Note: I did not personally see or examine the patient today, but I verified all chan points of YOLY Bobby's assessment and plan with the following exceptions/additions: None Subjective eval this morning, up in chair and dressed feeling much better, pain controlled plans for d/c today slight LE edema, no SOB/CP, dizziness. Discussed holding diuretics and monitoring weights at home and only resuming if increased edema/weight gain. Also discussed f/u PCP and number provided for Friday to call if she has an issues getting into her PCP in follow up. Review of Systems Review of Systems: All systems reviewed & are unremarkable except as noted in HPI & below Physical Exam Physical Exam: General: WD/WN elderly female sitting up in chair, NAD, improvement in mood/color HEENT: head normocephalic, atraumatic, mmm (improved from yesterday), trachea midline Resp: CTAB, diminished in the bases, on room air CV: RRR, no m/r/g, trace LE pedal edema, pulses palpable GI: +BS, soft, NT MSK/NEURO: moves all extremities, no focal deficits, strength equal dorsiflexion/plantar flexion, NVI dressing c/d/i, no bleeding/hematoma noted, NO DELPHINE drain Psych: AOx3, pleasant and cooperative Results & Data Results & Data ([facility]) Vital Signs (Past 12 Hours) Vital Signs Temp Pulse Resp BP Pulse Ox O2 Del Method 03/10/22 07:47 37.0 C 91 H 16 150/74 H 96 Room Air 03/09/22 20:56 36.9 C 69 18 108/57 L 96 Room Air Laboratory Results 03/10/22 03/10/22 03/10/22 Range/Units 08:14 07:37 07:37 WBC 5.41 (4.8-10.8) K/ul RBC 3.04 L (3.93-5.22) M/uL Hgb 9.4 L (12.0-16.0) g/dl Hct 28.2 L (34.1-44.9) % MCV 92.8 (80.0-100.0) fL MCH 30.9 (25.0-34.0) pg MCHC 33.3 (32.0-36.0) g/dL RDW Std Deviation 48.2 H (36.4-46.3) fL RDW Coeff of Lissy 14.6 H (11.5-14.5) % Plt Count 162 (130-400) K/uL MPV 9.3 L (9.4-12.3) fL Absolute Nucleated RBC 0.02 H (0-0) K/uL Nucleated RBC % (auto) 0.4 % APTT Factor VIII Activity von Willebrand Antigen von Willebrand Multimer vWF Ristocetin Cofactr vWF Panel Interp Sodium 138 (136-145) mmol/L Potassium 4.3 (3.5-5.1) mmol/L Chloride 104 (98-107) mmol/L Carbon Dioxide 30 (21-32) mmol/L Anion Gap 4 (3-11) BUN 18 (6-23) mg/dl Creatinine 0.89 (0.6-1.2) mg/dl Est Cr Clr Drug Dosing 40.3 ml/min Est GFR ( Amer) 71.9 ml/min Est GFR (Non-Af Amer) 62.1 ml/min BUN/Creatinine Ratio 20.2 H (10-20) Glucose 134 H (70-99(Fasting)) mg/dl POC Glucose 136 H (70-99) mg/dl Calcium 8.8 (8.5-10.1) mg/dl Magnesium 2.1 (1.7-2.4) mg/dl 03/10/22 03/09/22 03/09/22 Range/Units 07:37 20:56 16:57 WBC (4.8-10.8) K/ul RBC (3.93-5.22) M/uL Hgb (12.0-16.0) g/dl Hct (34.1-44.9) % MCV (80.0-100.0) fL MCH (25.0-34.0) pg MCHC (32.0-36.0) g/dL RDW Std Deviation (36.4-46.3) fL RDW Coeff of Lissy (11.5-14.5) % Plt Count (130-400) K/uL MPV (9.4-12.3) fL Absolute Nucleated RBC (0-0) K/uL Nucleated RBC % (auto) % APTT Pending Factor VIII Activity Pending von Willebrand Antigen Pending von Willebrand Multimer Pending vWF Ristocetin Cofactr Pending vWF Panel Interp Pending Sodium (136-145) mmol/L Potassium (3.5-5.1) mmol/L Chloride (98-107) mmol/L Carbon Dioxide (21-32) mmol/L Anion Gap (3-11) BUN (6-23) mg/dl Creatinine (0.6-1.2) mg/dl Est Cr Clr Drug Dosing ml/min Est GFR ( Amer) ml/min Est GFR (Non-Af Amer) ml/min BUN/Creatinine Ratio (10-20) Glucose (70-99(Fasting)) mg/dl POC Glucose 144 H 140 H (70-99) mg/dl Calcium (8.5-10.1) mg/dl Magnesium (1.7-2.4) mg/dl PG Care Time/CCT Total # of Minutes Spent Total Time Spent with Patient: Total time spent is greater than 50% in coordination of care (as documented) at patient's floor/unit and/or counseling patient: Coding Level of Care Code 83119 Subseq Hosp Care Lvl 3 Diagnoses Neurogenic claudication due to lumbar spinal stenosis M48.062 Acute blood loss as cause of postoperative anemia D62 CAD (coronary artery disease) I25.10 CKD (chronic kidney disease) N18.9 History of CVA (cerebrovascular accident) Z86.73 Hx of congestive heart failure Z86.79 GERD (gastroesophageal reflux disease) K21.9 Anxiety and depression F41.9; F32.A Rheumatoid arthritis M06.9 Diabetes mellitus, type II E11.9 B12 deficiency E53.8
[2022-03-10 07:52] LABS: Hematocrit (blood only) 28.2 % (34.1-44.9); Hemoglobin 9.4 g/dl (12.0-16.0); Mean Corpuscular Hemoglobin 30.9 pg (25.0-34.0); Mean Corpuscular Hgb Conc 33.3 g/dL (32.0-36.0); Mean Corpuscular Volume 92.8 fL (80.0-100.0); Mean Platelet Volume 9.3 fL (9.4-12.3); Nucleated RBC # (auto) 0.02 K/uL (0-0); Nucleated RBC % (auto) 0.4 %; Platelet Count 162 K/uL (130-400); RDW Coefficient of Variation 14.6 % (11.5-14.5); RDW Standard Deviation 48.2 fL (36.4-46.3); Red Blood Count 3.04 M/uL (3.93-5.22); White Blood Count 5.41 K/ul (4.8-10.8)
[2022-03-10 08:16] LABS: BUN Creatinine Ratio 20.2 (10-20); Calcium 8.8 mg/dl (8.5-10.1); Creatinine Clr Calc Pharmacy 40.3 ml/min; Est GFR (African American) 71.9 ml/min; Est GFR (Non-African American) 62.1 ml/min; Magnesium 2.1 mg/dl (1.7-2.4); Potassium 4.3 mmol/L (3.5-5.1)
[2022-03-10] MEDS ORDERED: FERROUS SULFATE 325 MG TAB PO SCH (09:00)
[2022-03-10] MEDS: GABAPENTIN 300 MG CAP PO SCH (09:05)
[2022-03-10] MEDS: CALCIUM 600MG + VIT D 400 IU TAB PO SCH (09:05)
[2022-03-10] MEDS: PANTOprazole 40 MG TAB PO SCH (09:05)
[2022-03-10] MEDS: METOPROLOL TARTRATE 50 MG TAB PO SCH (09:05)
[2022-03-10] MEDS: ROSUVASTATIN CALCIUM 20 MG TAB PO SCH (09:05)
[2022-03-10] MEDS: ICOSAPENT ETHYL 0.5 GM PO SCH (09:05)
[2022-03-10] MEDS: FOLIC ACID 1 MG TAB PO SCH (09:05)
[2022-03-10] MEDS: DULoxetine HCL 30 MG CAP PO SCH (09:05)
[2022-03-10] MEDS: CYANOCOBALAMIN 1000 MCG/ML VIAL IM SCH (09:06)
[2022-03-10] MEDS: INSULIN ASPART PER UNIT SC SCH (09:16)
--- NOTE | 2022-03-10 09:49 | Discharge Summary ---
Date of Service March 10, 2022 Admission HPI Per Admitting Provider This is a 68-year-old female who presents with chronic persistent back and bilateral leg pain. After failing extensive course of nonoperative care is here for surgical intervention. Principal Diagnosis Lumbar spinal stenosis with neurogenic medication Discharge Data Allergies Allergy/AdvReac Type Severity Reaction Status Date / Time venofer AdvReac Intermediate Hypotension Uncoded 03/09/22 20:02 Consultations 03/05/22 12:08 Consult Hospitalist Routine Procedures Performed Operation Date: 03/05/22 07:45 Actual Procedures p L2-L5 Decompression and Fusion, Spinal Cord Monitoring(Not Applicable) - Donte Escamilla DO Ordered Studies 03/05/22 07:45 [place] lumbar spine 2-3V Routine Hospital Course (1) Neurogenic claudication due to lumbar spinal stenosis: Patient went multilevel lumbar decompression fusion tolerated this well was taken to the orthopedic floor postoperatively postop day 1 she was up and ambulating progress postop day 3 and 4 she progressed appropriately. Pain well controlled. Socially discharged home. Discharge orders instructions from the chart for further review. Total Time Total Time Spent Total Time Spent (In Minutes): 20 minutes Discharge Plan Discharge Items Patient Disposition: Home - Self-Care Reason For Visit: Spinal Stenosis, Lumbar with Neurogenic Claudicati Discharge Diagnosis: Lumbar spinal stenosis with neurogenic claudication Activity: As commented below Non-emergency contact: Primary Care Provider Call non-emergency contact if: you have any medication questions Follow-up/Referrals: Martha Arambula DO [Primary Care Provider] - Diet: Regular Addtl Attending Provider Instructions: ACTIVITY RECOMMENDATIONS: SELF CARE INSTRUCTIONS AFTER THORACIC/LUMBAR FUSIONS 1. You may walk to your tolerance. It is good exercise for your legs and back. Expect some back and intermittent leg aches and pains. 2. You may perform "counter-top" level activities (make a sandwich, lexie with a project, etc.). 3. No bending or lifting of more than 10 pounds or back twisting of any nature (roll like a log when turning in bed). 4. You may ride in a car for 20-30 minutes at a time. No driving until after your first visit with your doctor. 5. Frequent changes of position and restricting sitting to 30 minutes at a time will help limit the amount of back spasms and stiffness you may experience. 6. You may discontinue the use of ambulatory aids (cane, crutches, etc.) once your strength and confidence allow. 7. 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 Do not take a tub bath, sit in a hot tub or go into a swimming pool until after your first recheck in the office. SPECIAL CARE INSTRUCTIONS: VERY IMPORTANT TO READ AND REVIEW A. Your surgical incision has been closed with a cosmetic suture under the skin that will dissolve in about 6 weeks. In 14 days, you can use a pair of clean scissors and cut the suture that is left outside of the skin at the ends of your incision. 1. The small skin tapes can be removed 7 days after surgery if they have not fallen off by that point. 2. You may keep the wound open to air as much as possible to promote healing after post-op day number 5 unless told otherwise by your doctor. 3. If you think the wound looks like it is becoming infected (redness or worsening drainage) and/or you are experiencing fever, chill or worsening back pain and muscle spasms, contact the office so that we may evaluate you as soon as possible. B. Complications are uncommon, but please contact us if you have any signs or symptoms of: 1. wound infection (fever higher than 102.5 degrees F, redness, separation of wound, drainage, or increasing pain from the incision) 2. blood clots in legs (pain, swelling, redness and warmth in legs) 3. urinary tract infection (fever higher than 102.5 degrees F, burning upon urination or increased frequency of urination) 4. nerve problems (inability to walk on your toes or heels, numbness, loss of bowel or bladder control) 5. any other symptoms that concern you C. Please call the office at if you have any concerns or questions about your operation or recovery. D. No smoking! Smoking drastically decreases the chance of a solid fusion. E. Do not take any anti-inflammatory medications (Indocin, Advil, Motrin, Aspirin, Naprosyn, etc.) as these may inhibit the chance of a solid fusion. Tylenol is okay to take for pain. MANAGING PAIN AFTER SPINAL SURGERY 1. Narcotic medication is intended for short-term use and will be provided for surgical pain. Surgical pain usually lasts for a period of 4-6 weeks. Narcotic medication includes Percocet, Vicodin, Darvocet, Tylenol #3 or Lortab. 2. Longer-term pain is more appropriately treated with non-narcotic medication such as Tylenol ES. 3. Muscle spasm is not appropriately treated with narcotics. Muscle relaxers such as Soma, Flexeril or Skelaxin can be used along with Tylenol ES. 4. Remember that we all live with some "aches and pains". This is not unusual or uncommon after an injury or as we get older. a. Back pain is expected and may include muscle spasms for 4 to 6 weeks after surgery. The pain should gradually improve. If the pain worsens for no apparent reason, please contact the office. b. Intermittent leg pain may also be experienced and should not be concerned about unless it worsens for no apparent reason. If so, please contact the office. 5. We will provide appropriate medication within the normal guidelines of their prescribed use. We will also be very cautious and aware of potential abuse and extended duration of patients' medication needs. a. Pain medications are for your comfort and to assist with sleep and rest so that the tissue can heal. They are not provided in order to return to normal activity and should not be used through the day. To do so or worsening pain at night can result from ongoing tissue damage and development of tolerance to the prescribed medicine. 6. Please allow 2-3 days to process refills. Prescriptions will not be mailed but must be picked up at the office. FOLLOW UP VISIT: Keep your scheduled follow-up appointment. Any questions, please call the office at . Pending Studies at Discharge: No Stand-Alone Forms: My [facility] [employer], Smoking Cessation Medications and DC Order Prescriptions: New oxycodone 5 mg tablet 5 mg PO Q6H PRN (Reason: pain, severe) Qty: 30 0RF tramadol 50 mg tablet 50 mg PO Q6H PRN (Reason: pain, moderate) Qty: 30 0RF ferrous sulfate 325 mg (65 mg iron) Tablet,Delayed Release (Dr/Ec) 325 mg PO QAM 30 Days Qty: 30 3RF Continued furosemide 20 mg tablet 40 mg PO QAM duloxetine 30 mg capsule,delayed release(DR/EC) 30 mg PO QAM oxycodone-acetaminophen 10-325 mg tablet 1 tab PO Q8H PRN (Reason: Pain) multivitamin Capsule 1 cap PO QAM methotrexate 2.5 mg PO WEEKLY Label Comments: 7 tabs on Fridays metoprolol tartrate 50 mg tablet 50 mg PO BID gabapentin 100 mg capsule 300 mg PO BID metformin 500 mg tablet 850 mg PO BID losartan 50 mg tablet 50 mg PO QAM folic acid 1 mg tablet 1 mg PO QAM pantoprazole 40 mg tablet,delayed release (DR/EC) 40 mg PO QAM aspirin 81 mg tablet,delayed release (DR/EC) 81 mg PO QPM diphenhydramine HCl [Benadryl] 25 mg capsule 25 mg PO TID PRN (Reason: Allergy Symptoms) Caltrate 600-D Plus Minerals 600 mg calcium- 800 unit-50 mg tablet 1 tab PO QAM rosuvastatin 20 mg tablet 20 mg PO QAM Jardiance 10 mg tablet 10 mg PO QAM spironolactone 25 mg tablet 25 mg PO QAM trazodone 50 mg Tablet 50 mg PO HS icosapent ethyl [Vascepa] 1 gram Capsule 0.5 g PO BID Eye Drop Tears BID Nasal [place] (sodium chloride) HS PRN (Reason: Allergy Symptoms) Discharge Orders: Discharge Order (Routine); Ordered 03/10/22 Ordered By: Donte Escamilla Admission Data Admit Date/Time: 03/05/22 10:30 Attending Provider: Donte Escamilla Admit Provider: Donte Escamilla Primary Care Provider: Martha Arambula Other Providers: Cisco Mills ; Luiza Pina
[2022-03-10] MEDS: SPIRONOLACTONE 25 MG TAB PO SCH (10:04)
[2022-03-10] MEDS: oxyCODONE HCL IR 5 MG TAB (IMMEDIATE RELEASE) PO PRN (13:48)
[2022-03-14 14:06] LABS: Anti Cardiolipin Ab IgG <2.0 GPL-U/mL; Anti Cardiolipin Ab IgM <2.0 MPL-U/mL; Anti-Thrombin III Activity 109 % normal (80-135); B2 Glycoprotein IgG <2.0 U/mL (<20.0); B2 Glycoprotein IgM <2.0 U/mL (<20.0); PTT LA Screen 35 sec (<=40); Protein S Functional(Activity) 66 % normal (60-140)
[2022-03-17 17:52] LABS: Factor 5 Mutation NEGATIVE
[2022-03-18 18:37] LABS: APTT 25 sec (23-32); F8 Activity 288 % normal (50-180); Ristocetin Cofactor 273 % normal (42-200); Von Willebrand Factor Antigen 292 % (50-217)
== END 2022-03-10 13:58 | disposition home or self-care (01) | DRG 460 ==
LOC: ASU 06:33 → 3E 10:30